=== PATIENT | female | born 1945 | race Caucasian/White ===

== ENCOUNTER → 2016-10-09 | Outpatient (CLI) | payer BC ==
[2016-10-09 09:46] LABS: BASO % 0.2 %; BASO ABS # 0.01 K/uL (0-0.2); COMPLETE YES; EOS % 2.6 %; IG% 0.2 %; LYMPH % 32.3 %; LYMPH ABS # 2.08 K/uL (1.2-3.4); MEAN CORPUSCULAR HEMOGLOBIN 30.3 pg (25-34); MEAN CORPUSCULAR HGB CONC 34.4 g/dl (32-36); MEAN PLATELET VOLUME 10.3 fL (7.4-10.4); MONO % 10.9 %; NEUT % 53.8 %; PLATELET COUNT 332 K/uL (130-400); RED BLOOD COUNT 4.66 M/uL (4.2-5.4); WHITE BLOOD COUNT 6.43 K/uL (4.8-10.8)
[2016-10-09 10:02] LABS: ALT/SGPT 20 U/L (12-78); AST/SGOT 13 U/L (15-37); BLOOD UREA NITROGEN 11 mg/dl (7-18); BUN/CREATININE RATIO 15.5 (10-20); CALCIUM 9.6 mg/dl (8.5-10.1); CARBON DIOXIDE 29 mmol/L (21-32); CHLORIDE 102 mmol/L (98-107); CHOLESTEROL 211 mg/dl (0-200); CREATININE 0.69 mg/dl (0.60-1.20); GLUCOSE 94 mg/dl (70-99); POTASSIUM 3.6 mmol/L (3.5-5.1); SODIUM 138 mmol/L (136-145); TRIGLYCERIDES 92 mg/dl (0-150); VERY LOW DENSITY LIPOPROT CALC 18 mg/dl
[2016-10-09 10:12] LABS: CHOLESTEROL/HDL RATIO 2.4; HDL CHOLESTEROL 88 mg/dl; LDL CHOLESTEROL CALCULATED 105 mg/dl
[2016-10-09 10:13] LABS: ESTIMATED AVERAGE GLUCOSE 120 mg/dl; HA1C FLAG Normal (Normal)
--- NOTE | 2016-10-16 09:52 | CODING QUERY MEDICAL NECESSITY ---
SUPPORTING DIAGNOSIS NEEDED A supporting diagnosis is required for the test/procedure performed on this patient in order for us to be reimbursed by the patient's insurance. Please provide a supporting diagnosis for the following test/procedure listed below next to the test name along with your signature. *If there is no additional diagnosis for this patient that would support the following test/procedure please document that below next to the test/procedure. Test(s)/Procedure(s) that require a supporting diagnosis: * HEMOGLOBIN A1C DIAGNOSIS: Provider Signature: Date: Thank you Meghan [employer] Once completed, please kindly fax back to [phone] For questions please call [phone]
== END | disposition home or self-care (01) ==
LOC: C.LAB1850 07:42
PROVIDERS: ATTEND Internal Medicine
DX: E78.00 Pure hypercholesterolemia, unspecified (principal); R73.9 Hyperglycemia, unspecified

== ENCOUNTER → 2017-06-03 | Outpatient (CLI) | payer BC ==
[2017-06-03 09:33] LABS: BASO % 0.1 %; BASO ABS # 0.01 K/uL (0-0.2); EOS % 2.1 %; EOS ABS # 0.17 K/uL (0-0.5); HEMATOCRIT 38.1 % (37-47); HEMOGLOBIN 13.3 g/dL (12.0-16.0); IG# 0.02 K/uL (0.00-0.02); LYMPH % 25.2 %; LYMPH ABS # 2.01 K/uL (1.2-3.4); MEAN CELL VOLUME 87.2 fL (80-100); MEAN CORPUSCULAR HEMOGLOBIN 30.4 pg (25-34); MEAN CORPUSCULAR HGB CONC 34.9 g/dl (32-36); MEAN PLATELET VOLUME 10.4 fL (7.4-10.4); NEUT % 62.3 %; NEUT ABS # 4.97 K/uL (1.4-6.5); PLATELET COUNT 326 K/uL (130-400); RED CELL DISTRIBUTION WIDTH CV 13.5 % (11.5-14.5); RED CELL DISTRIBUTION WIDTH SD 42.9 fL (36.4-46.3); WHITE BLOOD COUNT 7.98 K/uL (4.8-10.8)
[2017-06-03 09:46] LABS: HEMOGLOBIN A1C 5.9 % (4.5-5.6)
[2017-06-03 09:50] LABS: ALT/SGPT 21 U/L (12-78); AST/SGOT 15 U/L (15-37); BLOOD UREA NITROGEN 10 mg/dl (7-18); CALCIUM 9.2 mg/dl (8.5-10.1); CARBON DIOXIDE 31 mmol/L (21-32); CHOLESTEROL 171 mg/dl (0-200); CREATININE 0.63 mg/dl (0.60-1.20); GLUCOSE 103 mg/dl (70-99); POTASSIUM 3.3 mmol/L (3.5-5.1); SODIUM 131 mmol/L (136-145)
[2017-06-03 09:53] LABS: LDL CHOLESTEROL CALCULATED 75 mg/dl
== END | disposition home or self-care (01) ==
LOC: C.LAB1850 07:00
PROVIDERS: ATTEND Internal Medicine
DX: E78.00 Pure hypercholesterolemia, unspecified (principal)

== ENCOUNTER → 2017-07-19 | Outpatient (CLI) | payer BC ==
--- NOTE | 2017-07-19 10:04 | DIAGNOSTIC IMAGING REPORT ---
DUPLEX RENAL ARTERY CLINICAL HISTORY: 71 years-old Female presenting with E78.00 [id number]. TECHNIQUE: Real-time grayscale and color and spectral Doppler ultrasound imaging of the kidneys was performed. COMPARISON: None. FINDINGS: Right kidney: Normal echogenicity of renal parenchyma. Right kidney measures 11.2 cm. No hydronephrosis. No convincing evidence of calculus or mass. Intrarenal resistive indices range from 0.68 to 0.71. Normal intrarenal arterial waveforms. Renal artery patent with peak systolic velocity 338 cm/s proximally, 147 cm/s in the midportion, and 46 cm/s distally. Renal vein patent. Left kidney: Normal echogenicity of renal parenchyma. Left kidney measures 11.5 cm. No hydronephrosis. No convincing evidence of calculus or mass. Intrarenal resistive indices range from 0.65 to 0.77. Normal to slightly peaked intrarenal arterial waveforms. Renal artery patent with peak systolic velocity 99 cm/s proximally, 65 cm/s in the midportion, and 75 cm/s distally. Renal vein patent. Abdominal aorta: Atherosclerosis. Peak systolic velocity 51 cm/s. Ratio of right renal artery PSV/aortic PSV: 6.63. Ratio of left renal artery PSV/aortic PSV: 1.94. Other: None. Reference ranges: Normal main renal artery peak systolic velocity less than 180 cm/s. Ratio of renal artery PSV to aortic PSV less than 3.5 equates to normal or less than 60% stenosis. Only one of the two criteria listed needs to be met for diagnosis. IMPRESSION: 1. Findings consistent with proximal right renal artery stenosis. Electronically signed by: Ramsey Santos M.D. 07/19/2017 10:03 AM Dictated Date/Time: 07/19/2017 10:00 AM
== END | disposition home or self-care (01) ==
LOC: C.ULTR 08:54
PROVIDERS: ATTEND Internal Medicine
DX: E78.00 Pure hypercholesterolemia, unspecified (principal)

== ENCOUNTER → 2017-07-24 | Outpatient (CLI) | payer BC ==
[~2017-07-24] MED LIST: OPTIRAY 320 IV PRN
--- NOTE | 2017-07-24 07:47 | DIAGNOSTIC IMAGING REPORT ---
ANGIO ABD/PELVIS COMBO CLINICAL HISTORY: Abnormal ultrasound renal artery stenosis TECHNIQUE: Transaxial acquisition with multi axial reformatted images COMPARISON STUDY: Ultrasound 07/19/2017 FINDINGS: Lung bases are clear. Considerable atelectatic change abdominal aorta and abdominal arterial vasculature. Celiac axis is patent. These superior mesenteric artery also shows no significant narrowing. The left renal artery shows mild atherosclerotic change at its origin but no significant stenotic process is present. There are duplex right renal arterial supplies. There is an 80 percent stenosis of the upper right renal arterial artery. A lower pole right renal artery originates from the anterior aspect of the abdominal aorta and shows no significant stenotic process. Abdominal aorta itself shows considerable atherosclerotic change but no major narrowing. There is occlusion origin right iliac artery. This occlusion extends over a length of 5 cm with evidence for distal collateral reconstitution. Kidneys enhance uniformly. There is moderate atherosclerotic change of the remaining arterial vasculature of the pelvis although no additional high-grade stenosis is seen. There is a mild narrowing of the right common femoral artery. This is estimated no more than 30-40%. Bowel pattern is considered nonobstructive. Overall morphology of liver spleen and pancreas are unremarkable. IMPRESSION: 1. Considerable atherosclerotic change abdominal aorta. 2. 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 Right iliac artery is reconstituted via collateral vessels within the mid pelvic region. 4. Left renal artery shows no significant stenosis. 5. Duplex right renal arterial supply with the superior vessel demonstrating an 80% narrowing. 6. The inferior right renal artery shows no significant stenotic process. 7. 30% narrowing origin right common femoral artery The above report was generated using voice recognition software. It may contain grammatical, syntax or spelling errors. Electronically signed by: Keven Marcos M.D. 07/24/2017 7:46 AM Dictated Date/Time: 07/24/2017 7:34 AM
== END | disposition home or self-care (01) ==
LOC: C.CTS 06:53
PROVIDERS: ATTEND Internal Medicine
DX: I10 Essential (primary) hypertension (principal)

== ENCOUNTER 2019-02-14 12:46 | Inpatient (IN) ==
[2019-02-14 13:57] LABS: Basophils # (auto) 0.01 K/uL (0-0.2); Basophils % (auto) 0.1 %; Hematocrit (blood only) 31.4 % (37-47); Hemoglobin 9.1 g/dL (12.0-16.0); Lymphocytes # (auto) 0.68 K/uL (1.2-3.4); Lymphocytes % (auto) 10.1 %; Mean Corpuscular Hemoglobin 20.2 pg (25-34); Mean Corpuscular Volume 69.6 fL (80-100); Monocytes # (auto) 0.35 K/uL (0.11-0.59); Monocytes % (auto) 5.2 %; Neutrophils # (auto) 5.69 K/uL (1.4-6.5); Neutrophils % (auto) 84.6 %; Platelet Count 449 K/uL (130-400); RDW Coefficient of Variation 16.4 % (11.5-14.5); RDW Standard Deviation 41.6 fL (36.4-46.3); Red Blood Count 4.51 M/uL (4.2-5.4); White Blood Count 6.73 K/uL (4.8-10.8)
--- NOTE | 2019-02-14 14:05 | XRay Report ---
XR chest 1V portable HISTORY: weakness COMPARISON: None. FINDINGS: The lungs are clear. Cardiac silhouette is normal in size. No pleural effusions. No pneumot horax. IMPRESSION: No acute process. Electronically signed by: Charles Child M.D. 02/14/2019 2:03 PM
[2019-02-14 14:16] LABS: Alanine Aminotransferase 25 U/L (12-78); Albumin Level 3.7 gm/dl (3.4-5.0); Aspartate Aminotransferase 16 U/L (15-37); BUN Creatinine Ratio 26.1 (10-20); Blood Urea Nitrogen 20 mg/dl (7-18); Calcium 10.1 mg/dl (8.5-10.1); Carbon Dioxide 27 mmol/L (21-32); Chloride 102 mmol/L (98-107); Est GFR (Non-African American) 77.7; Glucose 112 mg/dl (70-99); Potassium 3.2 mmol/L (3.5-5.1); Sodium 139 mmol/L (136-145)
[2019-02-14 14:27] LABS: Hypochromasia Present; Microcytosis Present
[2019-02-14 14:30] LABS: Albumin Globulin Ratio 0.9 (0.9-2); Alkaline Phosphatase 124 U/L (45-117); Bilirubin,Total 0.3 mg/dl (0.2-1); Globulin 4.2 gm/dl (2.5-4.0); Total Protein 7.9 gm/dl (6.4-8.2); Troponin I < 0.015 ng/ml (0-0.045)
[2019-02-14] MEDS ORDERED: OPTIRAY 320 125ml IV PRN (15:20)
[2019-02-14 15:24] LABS: Appearance Urine Cloudy (Clear); Bacteria Urine Automated 1+ (Negative); Bilirubin Urine Negative (Negative); Blood Urine Negative (Negative); Color Urine Dark Yellow; Epithelial Cell Urine Auto >30 /lpf (0-5); Glucose Urine UA Negative (Negative); Ketones Urine 1+ (Negative); Leukocyte Esterase Urine Negative (Negative); Nitrite Urine Negative (Negative); Protein Urine 3+ (Negative); RBC Urine Automated 0-4 /hpf (0-4); Specific Gravity Urine 1.024 (1.000-1.030); Urobilinogen Urine Negative (Negative); pH Urine 6.5 (4.5-7.5)
--- NOTE | 2019-02-14 15:34 | CT Scan Report ---
CT head/brain wo con CLINICAL HISTORY: 73 years-old Female with ams. Acutely altered mental status TECHNIQUE: Multiple axial CT images of the head were obtained without contrast. A dose lowering tech nique was utilized adhering to the principles of ALARA. COMPARISON: CTA head neck of same day. FINDINGS: No acute intracranial hemorrhage, midline shift, intracranial mass, hydrocephalus, territorial ischem ia or abnormal extra-axial collection. Age-related involutional changes with ex vacuo ventriculomegal y. Patchy white matter hypodensities suggest chronic microvascular ischemic disease. Senescent calcif ications of the lentiform nuclei. Hypodensities of the basal ganglia suggest remote lacunar infarctio ns. Cerebral vascular calcifications are also noted. The calvarium is intact. Trace mastoid effusions. Metopic suture. Paranasal sinuses are generally cl ear. Soft tissues and orbits are unremarkable. IMPRESSION: No acute intracranial abnormality. The above report was generated using voice recognition software. It may contain grammatical, syntax o r spelling errors. Electronically signed by: Preston Sams M.D. 02/14/2019 3:32 PM
--- NOTE | 2019-02-14 15:43 | CT Scan Report ---
CT angio neck with con, CT angio head w con CLINICAL HISTORY: 73 years-old Female with ams, memory issues. Acutely altered mental status with memory loss COMPARISON STUDY: Head CT of same day TECHNIQUE: Following the IV administration of 119 mL of Optiray 320, CT angiogram of the head and nec k was performed from the aortic arch to the skull apex. Images are reviewed in the axial, sagittal, a nd coronal planes. 3-D MIPS images are created and assessed. IV contrast was administered without com plication. All measurements were calculated based on NASCET criteria. A dose lowering technique was utilized adhering to the principles of ALARA. CT DOSE: 1011.90 mGy.cm FINDINGS: Opacified pulmonary arterial tree is unremarkable. Moderate atheromatous plaque of the thoracic aorti c arch and proximal great vessels. The imaged proximal subclavian arteries appear patent. Patent bila teral common carotid arteries. Moderate to severe mixed plaque of the bilateral carotid bulbs and pro ximal internal carotid arteries results in less than 50% luminal narrowing bilaterally. Severe calcif ied plaque of the cavernous and supraclinoid segments without high-grade stenosis. Mild multifocal maxine elizabet narrowing is noted throughout the right middle cerebral artery noted within the distal M1 branc h and within the terminal branches. The bilateral anterior cerebral arteries are patent. There is no aneurysm, dissection, high-grade stenosis or proximal branch occlusion. Dominant right vertebral artery. Less than 50% luminal narrowing involves the V2 segment right verteb ral artery at the level of C5-C6 secondary to facet arthrosis and spondylitic spurring. Calcified hardy que involves the proximal V4 segment right vertebral artery without high-grade narrowing. Development ally diminutive left vertebral artery is patent with majority of the vessel terminating in the left P ICA. Patent basilar artery. origin of the left posterior cerebral artery. Bilateral posterior c erebral arteries appear patent. Cerebral venous sinuses appear patent. No abnormal intracranial enhan cement. There is no pneumothorax. Moderate emphysema with bilateral bronchial wall thickening. There are a fe w scattered micronodules measuring 1-2 mm which are nonspecific however favored to reflect infectious or inflammatory process. Mild biapical pleural-parenchymal scarring. There are a few scattered subce ntimeter thyroid nodules noted. Orbits and soft tissues are within normal limits. Degenerative change s of the spine. Bilateral mastoid effusions. IMPRESSION: 1. No aneurysm, dissection, high-grade stenosis or proximal branch occlusion. 2. Moderate to severe mixed plaque of the bilateral carotid bulbs and proximal internal carotid arter ies results in less than 50% luminal narrowing bilaterally. 3. Mild multifocal luminal narrowing throughout the right middle cerebral artery. 4. Moderate emphysema. The above report was generated using voice recognition software. It may contain grammatical, syntax o r spelling errors. Electronically signed by: Preston Sams M.D. 02/14/2019 3:42 PM
--- NOTE | 2019-02-14 17:29 | History & Physical Report ---
Date of Service February 14, 2019 Assessment & Plan (1) Memory loss: Admit patient to PCU on telemetry for observation for acute memory loss. Vital signs every 4 hours. MRI of brain pending. Consult neurology. CBC CMP daily Replenish electrolytes. DVT prophylaxis Lovenox 40 mg subcu daily. Check folate and vitamin B12. Full code Present on Admission?: Yes (2) Hypertension: Continue home medicine: Diltiazem 300 mg extended release every 24, indapamide 1.25 mg tablet p.o. daily. Present on Admission?: Yes (3) Peripheral arterial disease: Continue atorvastatin 20 mg tablet nightly. Continue Clopidogrel 75 mg p.o. daily. Present on Admission?: Yes (4) Dyslipidemia: Lipid panel pending. Continue atorvastatin 20 mg nightly. Present on Admission?: Yes History of Present Illness Chief Complaint: Acute memory loss Primary Care Provider: Favio Valdes MD Patient is a 73 years old female with past medical history of peripheral vascular disease, hypertension, deep venous thrombosis, dyslipidemia, renal artery stenosis he is brought by her family to the emergency room with a complaint that patient is not acting herself, since this morning she is increasingly confused and has acute memory loss as of what happened yesterday and today. Patient is calmly sitting in her bed. She responds to questions. She is only oriented in person and place. Patient is unable to recall names of the medications that she took this morning even though her daughter said that she usually knows the names. Patient remembers that she took 4 pills. She recalls that occasionally she takes Tylenol PM for generalized pain. Patient is otherwise pleasant in person and admits that she is increasingly forgetful. She said that she is not sure why her daughters brought her in. Patient denies any fever, chills, chest pain, shortness of breath, syncope, near syncope, loss of consciousness, melena, hematuria, dysuria. Labs are reviewed and significant for WBCs of 6.73, hemoglobin 9.1, hematocrit 31.4, platelet 499, sodium 139, potassium 3.2, chloride 102, BUN 20, creatinine 0.77 GFR 77.7, troponin 0 0.015, TSH 2.44 .Decision was made to admit patient to PCU on telemetry for observation to rule out possible transient ischemic attack versus stroke versus acute memory loss due to chronic vascular dementia. Allergies Allergy/AdvReac Type Severity Reaction Status Date / Time No Known Allergies Allergy Verified 02/14/19 13:32 Home Medications Home Medications Medication Instructions Recorded Confirmed Type atorvastatin 20 mg tablet 20 mg PO DAILY #90 tab NS 11/07/18 02/14/19 Rx diltiazem HCl 300 mg 300 mg PO DAILY #90 cap 11/07/18 02/14/19 Rx capsule,extended release 24 hr clopidogrel 75 mg tablet 75 mg PO DAILY #90 tab 11/28/18 02/14/19 Rx indapamide 1.25 mg tablet 1.25 mg PO DAILY #90 tab 01/09/19 02/14/19 Rx Past Med/Surg History Medical History DVT (deep venous thrombosis) Dyslipidemia (Chronic) Hypertension (Chronic) Peripheral arterial disease (Chronic) Renal artery stenosis (Chronic) Family History Other Dementia Social History marital status: Current Living Situation: Spouse current occupational status: retired Feels Safe at Home: Yes Smoking Status: Current every day smoker Review of Systems Review of Systems: All systems reviewed & are unremarkable except as noted in HPI & below Physical Exam Constitutional: WD/WN, vitals as above well developed Eyes: PERRL, conjunctivae normal, anicteric sclerae ENMT: external ear and nose normal, oropharynx normal Neck: trachea midline, no thyromegaly Respiratory: normal respiratory effort, lungs clear to auscultation Cardiovascular: Heart Sounds: normal S1, normal S2 and + murmur Gastrointestinal (Abdomen): normal bowel sounds, soft, nontender, no hepatosplenomegaly Musculoskeletal: no cyanosis or clubbing, extremities motor strength 5/5 Skin: no rashes, warm and dry Neurologic: patellar DTR's 2+ bilat, sensation intact Psychiatric: Insight: + limited insight Patient admits she is forgetful. Mini-Mental test score poorly <15. Oriented only in person and place. Lymphatic: no cervical or axillary lymphadenopathy Results & Data Vital Signs (Past 12 Hours) Vital Signs Temp Pulse Resp BP Pulse Ox 02/14/19 15:00 81 17 99 02/14/19 14:30 84 15 98 02/14/19 14:00 88 26 H 100 02/14/19 13:30 87 21 186/71 H 100 02/14/19 13:19 93 H 18 180/85 H 100 02/14/19 12:59 36.6 C 98 H 20 189/80 H 99 Code Status & VTE Plan Code Status Full code VTE Prophylaxis Plan VTE Prophylaxis will be ordered: Yes PG Care Time/CCT Total # of Minutes Spent Total Time Spent with Patient: Total time spent is greater than 50% in coordination of care (as documented) at patient's floor/unit and/or counseling patient:
--- NOTE | 2019-02-14 17:35 | Emergency Department Note ---
Entered by Mary Ellen Baker acting as a scribe for Yury Hutchinson M.D. History of Present Illness General Chief complaint: Altered Mental Status Stated complaint: ALTERED MENTAL STATUS Time Seen by Provider: 02/14/19 13:11 Source: patient History of Present Illness Onset (ago): day(s) 3 Location: head Pain Consistency: + other (worsening) Quality: + other (altered mental status) Associated symptoms: + denies other symptoms (being in any pain, vision troubles, numbness, urinary symptoms, difficulty walking, difficulty moving bowels) and + other (difficulty with memory); no headaches The patient is a 73 year old female who presents to the Emergency Room with complaints of worsening altered mental status starting 3 days ago. The patient states that she is unsure why she is here. She states that she was bought in by her family because they dont think that she is herself. The patients daughter states that her father was complaining of the patient struggling with her short term memory over the last 3 days. She states that she is unable to remember conversations from an hour earlier. She reports that she really noticed that it was much worse this morning and bought her to the ED. She notes that she thinks it is 1998 which is unlike her. The patient notes that her mother did have dementia. The patient denies being in any pain, eating today, a headache, vision troubles, numbness, urinary symptoms, difficulty walking, difficulty moving bowels, use of blood thinners, a history of dementia, and a cardiac history. Home Medications Home Medications Medication Instructions Recorded Confirmed Type atorvastatin 20 mg tablet 20 mg PO DAILY #90 tab NS 11/07/18 02/14/19 Rx diltiazem HCl 300 mg 300 mg PO DAILY #90 cap 11/07/18 02/14/19 Rx capsule,extended release 24 hr clopidogrel 75 mg tablet 75 mg PO DAILY #90 tab 11/28/18 02/14/19 Rx indapamide 1.25 mg tablet 1.25 mg PO DAILY #90 tab 01/09/19 02/14/19 Rx Allergies Allergy/AdvReac Type Severity Reaction Status Date / Time No Known Allergies Allergy Verified 02/14/19 13:32 Past Med/Surg History Medical History DVT (deep venous thrombosis) Dyslipidemia (Chronic) Hypertension (Chronic) Peripheral arterial disease (Chronic) Renal artery stenosis (Chronic) Family History Other Dementia Social History marital status: Current Living Situation: Spouse current occupational status: retired Feels Safe at Home: Yes Smoking Status: Current every day smoker Review of Systems See HPI for pertinent positives & negatives. and A total of 10 systems reviewed and were otherwise negative Physical Exam Vital Signs Vital Signs - 24 hr 02/14/19 12:59 02/14/19 13:10 02/14/19 13:19 Temperature 36.6 C Temperature Source Oral Pulse Rate 98 H 93 H Pulse Rate from SpO2 Sensor 91 H Pulse Rhythm Regular Pulse Strength Normal Respiratory Rate 20 18 Respiratory Effort / Characteristics Non-Labored Spontaneous Respiratory Depth Normal Respiratory Pattern Regular Blood Pressure 189/80 H 180/85 H Blood Pressure Mean 116 125 Blood Pressure Position Sitting Pulse Oximetry 99 100 Oxygen Delivery Method Room Air Nasal Cannula Room Air Room Air Sepsis Recent Fever Within 48 Hours No Sepsis New/Unexplained Change in Mental Status No Sepsis Action Taken by Nursing No Action Required 02/14/19 13:30 02/14/19 14:00 02/14/19 14:30 Temperature Temperature Source Pulse Rate 87 88 84 Pulse Rate from SpO2 Sensor 87 89 84 Pulse Rhythm Pulse Strength Respiratory Rate 21 26 H 15 Respiratory Effort / Characteristics Respiratory Depth Respiratory Pattern Blood Pressure 186/71 H Blood Pressure Mean 112 Blood Pressure Position Pulse Oximetry 100 100 98 Oxygen Delivery Method Sepsis Recent Fever Within 48 Hours Sepsis New/Unexplained Change in Mental Status Sepsis Action Taken by Nursing 02/14/19 15:00 Temperature Temperature Source Pulse Rate 81 Pulse Rate from SpO2 Sensor 81 Pulse Rhythm Pulse Strength Respiratory Rate 17 Respiratory Effort / Characteristics Respiratory Depth Respiratory Pattern Blood Pressure Blood Pressure Mean Blood Pressure Position Pulse Oximetry 99 Oxygen Delivery Method Sepsis Recent Fever Within 48 Hours Sepsis New/Unexplained Change in Mental Status Sepsis Action Taken by Nursing GENERAL: Awake, alert but not oriented to the events of today, well-appearing, in no distress HENT: Normocephalic, atraumatic. EYES: Normal conjunctiva. Sclera non-icteric. NECK: Supple. No nuchal rigidity. RESPIRATORY: Clear to auscultation. No wheezes. Normal respiratory effort. CARDIAC: Normal rate. Normal rhythm. Extremities warm and well perfused. GI: Soft, non-distended. No tenderness to palpation. RECTAL: Deferred. MUSCULOSKELETAL: Atraumatic. Chest examination reveals no tenderness. LOWER EXTREMITIES: Calves are equal size bilaterally and non-tender. No edema NEURO: No slurred speech. Intact mcc memory. No facial droop. Cranial nerves 2-12 are grossly intact. No sensory or motor deficits noted. Limited recollection of recent events. SKIN: Warm and dry. No rash or jaundice noted. Course Course 1312: The patient was evaluated in room A11A. A complete history and physical exam was performed. 1557: I reevaluated the patient and updated her and her family on her test results at this time. I discussed the treatment plan with them. They verbally agree and understand. 1608: I discussed the patient's case with Dr. Bass- [facility] Hospitalist. She will evaluate the patient for further management. Administered Medications Ioversol (Optiray 320 125ml) 119 ml IV ONCE PRN PRN Reason: Interaction Checking Stop: 02/18/19 15: Last Admin: 02/14/19 15:20 Dose: 119 ml Documented by: [id number] Medical Decision Making Differential Diagnosis Differential diagnoses includes but is not limited to toxic, metabolic, infectious, traumatic, cardiac, neurologic, hematologic, psychiatric and inflammatory etiologies. Medical Records Attestation: I reviewed the patient's medical records. Home Medications Current Medication List: was personally reviewed by me Laboratory Data Attestation: I reviewed the patient's lab results. Result diagrams: 02/14/19 13:46 02/14/19 13:46 Lab Results 02/14/19 02/14/19 02/14/19 Range/Units 13:46 13:46 13:50 WBC 6.73 (4.8-10.8) K/uL RBC 4.51 (4.2-5.4) M/uL Hgb 9.1 L (12.0-16.0) g/dL Hct 31.4 L (37-47) % MCV 69.6 L (80-100) fL MCH 20.2 L (25-34) pg MCHC 29.0 L (32-36) g/dL RDW Std Deviation 41.6 (36.4-46.3) fL RDW Coeff of Pedro 16.4 H (11.5-14.5) % Plt Count 449 H (130-400) K/uL MPV 9.0 (7.4-10.4) fL Immature Gran % (Auto) 0.0 % Neut % (Auto) 84.6 % Lymph % (Auto) 10.1 % [place] % (Auto) 5.2 % Eos % (Auto) 0.0 % Baso % (Auto) 0.1 % Immature Gran # (Auto) 0.00 (0.00-0.02) K/uL Neut # (Auto) 5.69 (1.4-6.5) K/uL Lymph # (Auto) 0.68 L (1.2-3.4) K/uL [place] # (Auto) 0.35 (0.11-0.59) K/uL Eos # (Auto) 0.00 (0-0.5) K/uL Baso # (Auto) 0.01 (0-0.2) K/uL Hypochromasia Present Microcytosis Present Sodium 139 (136-145) mmol/L Potassium 3.2 L (3.5-5.1) mmol/L Chloride 102 (98-107) mmol/L Carbon Dioxide 27 (21-32) mmol/L Anion Gap 9.0 (3-11) BUN 20 H (7-18) mg/dl Creatinine 0.77 (0.6-1.2) mg/dl Est Cr Clr Drug Dosing Not Reportable Est GFR ( Amer) 90.0 Est GFR (Non-Af Amer) 77.7 BUN/Creatinine Ratio 26.1 H (10-20) Glucose 112 H (70-99) mg/dl POC Glucose 129 H (70-99) Calcium 10.1 (8.5-10.1) mg/dl Total Bilirubin 0.3 (0.2-1) mg/dl AST 16 (15-37) U/L ALT 25 (12-78) U/L Alkaline Phosphatase 124 H (45-117) U/L Troponin I < 0.015 (0-0.045) ng/ml Total Protein 7.9 (6.4-8.2) gm/dl Albumin 3.7 (3.4-5.0) gm/dl Globulin 4.2 H (2.5-4.0) gm/dl Albumin/Globulin Ratio 0.9 (0.9-2) TSH 2.440 (0.300-4.500) uIu/ml Urine Color Urine Appearance (Clear) Urine pH (4.5-7.5) Ur Specific [place] (1.000-1.030) Urine Protein (Negative) Urine Glucose (UA) (Negative) Urine Ketones (Negative) Urine Blood (Negative) Urine Nitrite (Negative) Urine Bilirubin (Negative) Urine Urobilinogen (Negative) Ur Leukocyte Esterase (Negative) Urine WBC (Auto) (0-5) /hpf Urine RBC (Auto) (0-4) /hpf U Hyaline Cast (Auto) (0-5) /lpf U Epithel Cells (Auto) (0-5) /lpf Urine Bacteria (Auto) (Negative) Ur Renal Epithelial Cell (0-5) /lpf 02/14/19 Range/Units 14:30 WBC (4.8-10.8) K/uL RBC (4.2-5.4) M/uL Hgb (12.0-16.0) g/dL Hct (37-47) % MCV (80-100) fL MCH (25-34) pg MCHC (32-36) g/dL RDW Std Deviation (36.4-46.3) fL RDW Coeff of Pedro (11.5-14.5) % Plt Count (130-400) K/uL MPV (7.4-10.4) fL Immature Gran % (Auto) % Neut % (Auto) % Lymph % (Auto) % [place] % (Auto) % Eos % (Auto) % Baso % (Auto) % Immature Gran # (Auto) (0.00-0.02) K/uL Neut # (Auto) (1.4-6.5) K/uL Lymph # (Auto) (1.2-3.4) K/uL [place] # (Auto) (0.11-0.59) K/uL Eos # (Auto) (0-0.5) K/uL Baso # (Auto) (0-0.2) K/uL Hypochromasia Microcytosis Sodium (136-145) mmol/L Potassium (3.5-5.1) mmol/L Chloride (98-107) mmol/L Carbon Dioxide (21-32) mmol/L Anion Gap (3-11) BUN (7-18) mg/dl Creatinine (0.6-1.2) mg/dl Est Cr Clr Drug Dosing Est GFR ( Amer) Est GFR (Non-Af Amer) BUN/Creatinine Ratio (10-20) Glucose (70-99) mg/dl POC Glucose (70-99) Calcium (8.5-10.1) mg/dl Total Bilirubin (0.2-1) mg/dl AST (15-37) U/L ALT (12-78) U/L Alkaline Phosphatase (45-117) U/L Troponin I (0-0.045) ng/ml Total Protein (6.4-8.2) gm/dl Albumin (3.4-5.0) gm/dl Globulin (2.5-4.0) gm/dl Albumin/Globulin Ratio (0.9-2) TSH (0.300-4.500) uIu/ml Urine Color Dark Yellow Urine Appearance Cloudy A (Clear) Urine pH 6.5 (4.5-7.5) Ur Specific [place] 1.024 (1.000-1.030) Urine Protein 3+ H (Negative) Urine Glucose (UA) Negative (Negative) Urine Ketones 1+ H (Negative) Urine Blood Negative (Negative) Urine Nitrite Negative (Negative) Urine Bilirubin Negative (Negative) Urine Urobilinogen Negative (Negative) Ur Leukocyte Esterase Negative (Negative) Urine WBC (Auto) 1-5 (0-5) /hpf Urine RBC (Auto) 0-4 (0-4) /hpf U Hyaline Cast (Auto) 10-30 H (0-5) /lpf U Epithel Cells (Auto) >30 H (0-5) /lpf Urine Bacteria (Auto) 1+ H (Negative) Ur Renal Epithelial Cell 5-10 H (0-5) /lpf Imaging Data Radiologist's Impression: Radiology results as stated below per my review and the radiologist's interpretation: XR chest 1V portable HISTORY: weakness COMPARISON: None. FINDINGS: The lungs are clear. Cardiac silhouette is normal in size. No pleural effusions. No pneumothorax. IMPRESSION: No acute process. Electronically signed by: Charles Child M.D. 02/14/2019 2:[address] head/brain wo con CLINICAL HISTORY: 73 years-old Female with ams. Acutely altered mental status TECHNIQUE: Multiple axial CT images of the head were obtained without contrast. A dose lowering technique was utilized adhering to the principles of ALARA. COMPARISON: CTA head neck of same day. FINDINGS: No acute intracranial hemorrhage, midline shift, intracranial mass, hydrocephalus, territorial ischemia or abnormal extra-axial collection. Age- related involutional changes with ex vacuo ventriculomegaly. Patchy white matter hypodensities suggest chronic microvascular ischemic disease. Senescent calcifications of the lentiform nuclei. Hypodensities of the basal ganglia suggest remote lacunar infarctions. Cerebral vascular calcifications are also noted. The calvarium is intact. Trace mastoid effusions. Metopic suture. Paranasal sinuses are generally clear. Soft tissues and orbits are unremarkable. IMPRESSION: No acute intracranial abnormality. The above report was generated using voice recognition software. It may contain grammatical, syntax or spelling errors. Electronically signed by: Preston Sams M.D. 02/14/2019 3:[address] angio neck with con, CT angio head w con CLINICAL HISTORY: 73 years-old Female with ams, memory issues. Acutely altered mental status with memory loss COMPARISON STUDY: Head CT of same day TECHNIQUE: Following the IV administration of 119 mL of Optiray 320, CT angiogram of the head and neck was performed from the aortic arch to the skull apex. Images are reviewed in the axial, sagittal, and coronal planes. 3-D MIPS images are created and assessed. IV contrast was administered without complication. All measurements were calculated based on NASCET criteria. A dose lowering technique was utilized adhering to the principles of ALARA. CT DOSE: 1011.90 mGy.cm FINDINGS: Opacified pulmonary arterial tree is unremarkable. Moderate atheromatous plaque of the thoracic aortic arch and proximal great vessels. The imaged proximal subclavian arteries appear patent. Patent bilateral common carotid arteries. Moderate to severe mixed plaque of the bilateral carotid bulbs and proximal internal carotid arteries results in less than 50% luminal narrowing bila terally. Severe calcified plaque of the cavernous and supraclinoid segments without high-grade stenosis. Mild multifocal luminal narrowing is noted throughout the right middle cerebral artery noted within the distal M1 branch and within the terminal branches. The bilateral anterior cerebral arteries are patent. There is no aneurysm, dissection, high-grade stenosis or proximal branch occlusion. Dominant right vertebral artery. Less than 50% luminal narrowing involves the V2 segment right vertebral artery at the level of C5-C6 secondary to facet arthrosis and spondylitic spurring. Calcified plaque involves the proximal V4 segment right vertebral artery without high-grade narrowing. Developmentally diminutive left vertebral artery is patent with majority of the vessel terminating in the left PICA. Patent basilar artery. origin of the left posterior cerebral artery. Bilateral posterior cerebral arteries appear patent. Cerebral venous sinuses appear patent. No abnormal intracranial enhancement. There is no pneumothorax. Moderate emphysema with bilateral bronchial wall thickening. There are a few scattered micronodules measuring 1-2 mm which are nonspecific however favored to reflect infectious or inflammatory process. Mild biapical pleural-parenchymal scarring. There are a few scattered subcentimeter thyroid nodules noted. Orbits and soft tissues are within normal limits. De generative changes of the spine. Bilateral mastoid effusions. IMPRESSION: 1. No aneurysm, dissection, high-grade stenosis or proximal branch occlusion. 2. Moderate to severe mixed plaque of the bilateral carotid bulbs and proximal internal carotid arteries results in less than 50% luminal narrowing bilaterally. 3. Mild multifocal luminal narrowing throughout the right middle cerebral artery. 4. Moderate emphysema. The above report was generated using voice recognition software. It may contain grammatical, syntax or spelling errors. Electronically signed by: Preston Sams M.D. 02/14/2019 3:42 PM ECG Data Attestation: I personally reviewed and interpreted this ECG as follows: Indication: + altered mental status Rate (beats per minute): 88 Rhythm: + normal sinus ECG [place]: + Normal ECG ST segments: no ST depression and no ST elevation ECG Findings: + Other (normal QT-c); no PVCs Blood Pressure Blood Pressure Findings: Elevated blood pressure Blood Pressure Disposition: further management by hospitalist DEB Eastman Patient is a 73-year-old female with past medical history including peripheral artery disease status post iliac repair, renal artery stenosis, dyslipidemia, hypertension presenting today with report of 3 days of worsening significant memory. Patient has issues remembering recent events but not long-term memory. No falls reported. No focal neurological deficits appreciated on exam and no aphasia. Some question is whether she may be suffering from worsening dementia but changed him fairly acute according to family. Laboratory studies here show some worsening anemia and slight hypokalemia but no other significant laboratory abnormality. Does not appear in any discomfort and ambulatory here without gait dysfunction. CT the head as well as CT angiograms of the head were obtained. Urinalysis without significant and evidence of infection. Discussed with patient's and daughter as well as the patient at the room. Again concerning that this could ramp represents a ongoing dementia process but they state pretty clearly things are very different today acutely. Given that they report an acute change discussed with him options of close outpatient follow-up of the next week or 2 versus further observation and consultation here in the hospital. They felt more comfortable with the plan to stay for further evaluation here. Discussed with hospitalist. Impression & Plan Confusion, Memory loss Discharge Plan Visit Data Chief Complaint: Altered Mental Status Stated Complaint: ALTERED MENTAL STATUS ED Provider: Yury Hutchinson Discharge Problem: Confusion, Memory loss Patient Disposition: Being Evaluated by Hospitalist Discharge Instructions Interventions: ED Discharge Assessment Last Done: 02/14/19 17:31 Forms Stand Alone Forms: [facility] Prescriptions Prescriptions: No Action diltiazem HCl 300 mg capsule,extended release 24hr 300 mg PO DAILY Qty: 90 RF: 3 atorvastatin 20 mg tablet 20 mg PO DAILY Qty: 90 RF: 3 indapamide 1.25 mg tablet 1.25 mg PO DAILY Qty: 90 RF: 3 clopidogrel 75 mg tablet 75 mg PO DAILY Qty: 90 RF: 2 Referrals Referrals: Favio Valdes MD [Primary Care Provider] - The scribe's documentation has been prepared under my direction and personally reviewed by me in its entirety. I confirm that the note above accurately reflects all work, treatment, procedures, and medical decision making performed by me.
[2019-02-14] MEDS ORDERED: ALUMINUM/MAGNESIUM SUSP 30 ML UDC PO PRN (17:52)
[2019-02-14] MEDS ORDERED: POLYETHYLENE (MIRALAX) 17 GM PACK PO PRN (17:52)
[2019-02-14] MEDS ORDERED: MAGNESIUM HYDROXIDE SUSP 30 ML UDC PO PRN (17:52)
[2019-02-14] MEDS ORDERED: ACETAMINOPHEN 325 MG TAB PO PRN (17:52)
[2019-02-14] MEDS ORDERED: SODIUM CHLORIDE 0.9% 1000ML 1,000 ML IV SCH (18:00)
[2019-02-14 18:33] LABS: Hematocrit (blood only) 29.4 % (37-47); Hemoglobin 8.5 g/dL (12.0-16.0); Mean Corpuscular Hemoglobin 19.8 pg (25-34); Mean Corpuscular Hgb Conc 28.9 g/dL (32-36); Mean Corpuscular Volume 68.5 fL (80-100); Platelet Count 460 K/uL (130-400); RDW Coefficient of Variation 16.4 % (11.5-14.5); RDW Standard Deviation 40.5 fL (36.4-46.3); Red Blood Count 4.29 M/uL (4.2-5.4); White Blood Count 6.26 K/uL (4.8-10.8)
[2019-02-14 18:53] LABS: Albumin Level 3.4 gm/dl (3.4-5.0); Creatinine Clr Calc Pharmacy 53.7 ml/min; Est GFR (African American) 101.5; Est GFR (Non-African American) 87.6; Potassium 3.2 mmol/L (3.5-5.1)
[2019-02-14 18:55] LABS: Basophils # (auto) 0.01 K/uL (0-0.2); Basophils % (auto) 0.2 %; Eosinophils # (auto) 0.02 K/uL (0-0.5); Eosinophils % (auto) 0.3 %; Hypochromasia Present; Immature Granulocytes # (auto) 0.01 K/uL (0.00-0.02); Immature Granulocytes % (auto) 0.2 %; Lymphocytes # (auto) 1.43 K/uL (1.2-3.4); Lymphocytes % (auto) 22.8 %; Microcytosis Present; Monocytes # (auto) 0.61 K/uL (0.11-0.59); Monocytes % (auto) 9.7 %; Neutrophils # (auto) 4.18 K/uL (1.4-6.5); Neutrophils % (auto) 66.8 %
[2019-02-14 18:56] LABS: Albumin Globulin Ratio 0.9 (0.9-2); Bilirubin,Total 0.4 mg/dl (0.2-1); Globulin 3.8 gm/dl (2.5-4.0); Total Protein 7.2 gm/dl (6.4-8.2)
[2019-02-14 19:12] LABS: Vitamin B12 693 pg/ml (211-911)
[2019-02-14 19:13] LABS: Folate (Folic Acid) > 24.00 ng/ml (>5.38)
--- NOTE | 2019-02-14 19:52 | Magnetic Resonance Report ---
MR brain wo con HISTORY: 73 years-old Female TIA acute strokelike symptoms with reported memory loss COMPARISON: CT head and CTA head neck of same day TECHNIQUE: Multiplanar multisequence MRI of the brain was obtained without the use of IV contrast. FINDINGS: Account Specialist localizer images demonstrate no gross extracranial abnormality. 1.7 x 1.1 cm focus of restricte d diffusion involves the left lentiform nucleus globus pallidus distribution. Moderately increased T2 /FLAIR signal within this distribution with decreased signal on the ADC map. No acute or subacute ter ritorial infarct. No acute intracranial hemorrhage, midline shift, abnormal extra-axial collection, h ydrocephalus or intracranial mass. Mild age-related involutional changes. Extensive patchy white danna er T2/FLAIR hyperintensities suggest chronic microvascular ischemic disease. Suggestion of remote inf arction of the gissell. Major flow voids appear patent. Trace mastoid effusions. Mild mucosal thickening of the ethmoid air c ells. Skull, soft tissues and orbits are unremarkable. Degenerative changes noted about the imaged ce rvical spine. IMPRESSION: 1. Acute infarction of the left lentiform nucleus, 1.7 cm. 2. No acute or subacute territorial infarct, acute intracranial hemorrhage, or midline shift. 3. Age-related involutional changes with advanced chronic microvascular ischemic disease. The above report was generated using voice recognition software. It may contain grammatical, syntax o r spelling errors. Electronically signed by: Preston Sams M.D. 02/14/2019 7:51 PM
[2019-02-14] MEDS ORDERED: ENOXAPARIN INJ 40 MG/0.4 ML SYR SQ SCH (20:00)
[2019-02-14] MEDS ORDERED: PHARMACIST DISCHARGE MED REC CONSULT PRN (21:00)
[2019-02-14] MEDS ORDERED: ATORVASTATIN 20 MG TAB PO ONE (21:31)
[2019-02-15 06:52] LABS: Basophils # (auto) 0.03 K/uL (0-0.2); Basophils % (auto) 0.6 %; Eosinophils # (auto) 0.07 K/uL (0-0.5); Eosinophils % (auto) 1.4 %; Hematocrit (blood only) 26.4 % (37-47); Hemoglobin 7.7 g/dL (12.0-16.0); Lymphocytes # (auto) 1.34 K/uL (1.2-3.4); Lymphocytes % (auto) 27.4 %; Mean Corpuscular Hemoglobin 20.2 pg (25-34); Mean Corpuscular Hgb Conc 29.2 g/dL (32-36); Mean Corpuscular Volume 69.3 fL (80-100); Mean Platelet Volume 8.8 fL (7.4-10.4); Monocytes # (auto) 0.48 K/uL (0.11-0.59); Monocytes % (auto) 9.8 %; Neutrophils # (auto) 2.97 K/uL (1.4-6.5); Neutrophils % (auto) 60.8 %; Platelet Count 369 K/uL (130-400); RDW Coefficient of Variation 16.3 % (11.5-14.5); RDW Standard Deviation 40.7 fL (36.4-46.3); Red Blood Count 3.81 M/uL (4.2-5.4); White Blood Count 4.89 K/uL (4.8-10.8)
[2019-02-15 07:22] LABS: Hypochromasia Present; Microcytosis Present
[2019-02-15 07:32] LABS: Albumin Level 3.1 gm/dl (3.4-5.0); Calcium 9.2 mg/dl (8.5-10.1); Creatinine Clr Calc Pharmacy 52.9 ml/min; Est GFR (Non-African American) 87.2; Potassium 3.1 mmol/L (3.5-5.1)
[2019-02-15 07:35] LABS: Albumin Globulin Ratio 0.9 (0.9-2); Bilirubin,Total 0.3 mg/dl (0.2-1); Globulin 3.3 gm/dl (2.5-4.0); Total Protein 6.4 gm/dl (6.4-8.2)
[2019-02-15] MEDS: INDAPAMIDE 1.25 MG TAB PO SCH (08:16)
[2019-02-15] MEDS: CLOPIDOGREL BISULFATE 75 MG TAB PO SCH (08:17)
[2019-02-15] MEDS: dilTIAZem HCL 300 MG CAPCR PO SCH (08:17)
[2019-02-15] MEDS: ASPIRIN 81 MG ECTAB PO SCH (08:17)
[2019-02-15] MEDS: ATORVASTATIN 40 MG TAB PO SCH (08:19)
[2019-02-15] MEDS ORDERED: ATORVASTATIN 20 MG TAB PO SCH (09:00)
--- NOTE | 2019-02-15 09:31 | Neurology Consultation ---
Date of Consultation February 15, 2019 Assessment & Plan (1) Stroke: Acute ischemic infarct within the left lentiform nucleus presenting with subacute neurocognitive dysfunction characterized by short-term memory loss, slow cognitive processing, emotional blunting, and subtle impairment of facility to the right hand, but without a gross hemiparesis or aphasia. She was significantly hypertensive at the time of presentation and had been noncompliant with her medications for the past few days. She is a longtime smoker as well. I agree with the addition of daily low-dose aspirin to her medication regimen for the time being. She should continue with clopidogrel 75 mg/day as well. In the long run, however, it would be preferable to discontinue her aspirin as dual antiplatelet therapy is not typically recommended for stroke risk modification. I agree with increasing her dosage of atorvastatin. Smoking cessation will need to be stressed. There does not appear to be evidence of a clinically significant or surgically amenable stenotic lesion within her cervical or intracranial circulation. She does have diffuse atherosclerotic disease, however. Treatment for this condition focuses on medical management and risk factor modification. She should have a transthoracic echocardiogram as well. Continue with medical management of patient's hypertension. Her blood pressure does seem to be modestly improved. Systolic blood pressure goal 140 to 160 mmHg at this time. (2) Memory loss: Although this patient does present with subacute decline in short-term memory, in speaking with her , it sounds like she has been having more chronic difficulty with memory and cognitive function that began at least one year ago. In that context, she may have underlying mild cognitive impairment or an element of mild dementia, potentially vascular subtype although Alzheimer's dementia cannot be completely excluded. Further evaluation of this patient's cognitive functioning should be done in the outpatient setting with consideration of neuropsychological evaluation. I would not start treatment for possible mild dementia at this point in time, however. History of Present Illness Reason for Consultation: Stroke Requesting Physician: Eddi Bass MD Attending Physician: Dejon Rangel MD History of Present Illness The patient is a 73-year old female with a chief complaint of memory loss and confusion that began subacutely, about 3 days ago. In speaking with her , however, it sounds like she has been having some difficulty with short- term memory for much longer timeframe, perhaps over the past year. Her difficulty became much more problematic, however, over the past few days. She seems a bit less animated than usual or more "subdued" according to her . She has not been complaining of headache, double vision, vertigo, focal weakness, or difficulty with gait or balance. She has not had any specific difficulty with speech production or language comprehension. Her showed me a pillbox and it appears as if she has not taken any of her medications for the past few days. The patient does not really give an explanation as to why she has not taken her medication although it may relate to her persistent confusion. She does have a past medical history of peripheral arterial disease and is undergone stenting about a year ago, renal artery stenosis, hypertension, and hyperlipidemia. She typically takes clopidogrel and atorvastatin as well as an antihypertensive as an outpatient. Again, she has been noncompliant for the past few days. Her blood pressure was notably elevated at the time of presentation, 189/80. An initial CT of the head was unremarkable, no evidence of hemorrhage or acute process. CT angiography of the head and neck revealed moderate to severe plaque at the bilateral carotid bulbs and proximal internal carotid arteries resulting in less than 50% narrowing bilaterally. There is mild multifocal narrowing throughout the right middle cerebral artery. Otherwise, no aneurysm, dissection, or evidence of high-grade stenosis or proximal branch occlusion. A follow-up brain MRI was completed which did suggest an acute infarct within the left lentiform nucleus measuring 1.7 cm. The study also reveals an old infarct in the gissell as well as extensive patchy chronic microvascular disease and atrophy. I reviewed the images as well as the radiologist interpretation of these tests. This morning, the patient remains mildly confused. She is aware that she has been having some difficulty with short-term memory but is otherwise a somewhat unreliable historian. Additional details as below. Allergies Allergy/AdvReac Type Severity Reaction Status Date / Time No Known Allergies Allergy Verified 02/14/19 13:32 Home Medications Home Medications Medication Instructions Recorded Confirmed Type atorvastatin 20 mg tablet 20 mg PO DAILY #90 tab NS 11/07/18 02/14/19 Rx diltiazem HCl 300 mg 300 mg PO DAILY #90 cap 11/07/18 02/14/19 Rx capsule,extended release 24 hr clopidogrel 75 mg tablet 75 mg PO DAILY #90 tab 11/28/18 02/14/19 Rx indapamide 1.25 mg tablet 1.25 mg PO DAILY #90 tab 01/09/19 02/14/19 Rx Patient History Medical History DVT (deep venous thrombosis) Dyslipidemia (Chronic) Hypertension (Chronic) Peripheral arterial disease (Chronic) Renal artery stenosis (Chronic) Family History Other Dementia Social History Preferred Language: Persian Communication Ability: Effective Visiting Housekeeper Required: No Beliefs That Will Affect Care: None marital status: Current Living Situation: Spouse current occupational status: retired Feels Safe at Home: Yes Safety Concerns: Feels Safe At This Time Smoking Status: Current every day smoker Tobacco Type: cigarettes ; Do You Dip or Chew Tobacco: No ; Second Hand Exposure: Yes ; Tobacco Cessation Education Requested by Patient: Yes Hx Alcohol Use: No Hx Substance Use: No Review of Systems Constitutional: no fever, no chills and no fatigue Eyes: no blind spots and no diplopia Ear, Nose, Mouth, Throat: no tinnitus and no hearing loss Respiratory: no cough and no dyspnea Cardiovascular: no chest pain and no palpitations Gastrointestinal: no nausea and no vomiting Genitourinary: no urinary incontinence Musculoskeletal: no back pain, no neck pain and no myalgia Integumentary: no rash and no lesions Neurologic: as per Subjective / HPI, + confusion and + memory loss; no localized weakness, no loss of sensation, no tremor(s), no seizure-like activity, no syncope, no headache(s) and no abnormal speech Psychiatric: no depression and no anxiety Hematologic / Lymphatic: no easy bleeding and no easy bruising Physical Exam Physical Exam: The patient is a well-developed, well-nourished elderly female. She is alert and fully oriented. Delayed recall impaired, 0 out of 3 objects. Remote memory intact. She is modestly inattentive. Concentration modestly impaired. Unable to spell world backwards, 2 out of 5. Patient is able to name objects and repeat phrases. Otherwise, she does not really speak that much spontaneously. Her affect seems a bit flat. Processing speed slow. Patient exhibits a normal comprehension of vocabulary but otherwise does not exhibit much knowledge of her past medical history. Visual [place] full to confrontation. Visual acuity normal. Pupils equal round reactive to light and accommodation. Eye movements normal. There is no nystagmus, ptosis, or ophthalmoplegia. Facial sensation intact. There is no facial droop or weak ness. Hearing intact. Palate elevates to midline. Shoulder shrug intact. Tongue protrudes to midline. Sensation intact to all modalities in all 4 limbs. Deep tendon reflexes are intact and symmetrical for the arms and legs bilaterally. Plantar responses downgoing bilaterally. There is no dysdiadochokinesia. There is mild dysmetria [id number] on the right. There is slight impairment of facility with fine finger movements for the right hand. There is a subtle effects with arm roll on the right as well. No obvious pronator drift. No difficulty with [id number] on the left. No difficulty with lgyc-rj-rzfe for either the left or right foot. Ophthalmoscopic examination reveals normal-appearing optic nerves and posterior segments. No papilledema or hemorrhages. Carotid pulses normal bilaterally, no bruits to auscultation. Gait and station not tested due to safety concerns. Patient exhibits normal muscle strength and tone for all 4 limbs proximally and distally. There is no atrophy. No abnormal movements observed. Results & Data Vital Signs (Past 12 Hours) Vital Signs Temp Pulse Pulse Resp BP Pulse Ox 02/15/19 07:44 37.2 C 75 18 142/60 H 97 02/15/19 03:20 36.8 C 71 16 147/66 H 98 02/15/19 00:00 69 02/14/19 23:25 36.7 C 67 18 165/67 H 96 Laboratory Results WBC 4.89, hemoglobin 7.7, hematocrit 26.4, platelet count 369, sodium 139, potassium 3.1, BUN 18, creatinine 0.70, glucose 94, calcium 9.2, AST 13, ALT 22, triglycerides 101, cholesterol 157, LDL 65, VLDL 20, HDL 72, vitamin B12 level 693, folate greater than 24.00, TSH 2.[address] of the head negative for hemorrhage or acute process. There is evidence of chronic microvascular ischemic disease as well as chronic basal ganglia lacunar infarcts. I reviewed the images as well as the radiologist rotation of this test. CT angiography of the head and neck negative for aneurysm, dissection, or high- grade stenosis or proximal branch occlusion. There is moderate to severe plaque of the bilateral carotid bulbs and proximal internal carotid arteries resulting in less than 50% luminal narrowing bilaterally. There is mild multifocal luminal narrowing throughout the right middle cerebral artery. MRI of the brain reveals an acute infarct within the left lentiform nucleus measuring 1.7 x 1.1 cm in size. There is mild generalized atrophy as well as fairly extensive chronic small vessel ischemic disease throughout the brain parenchyma. I reviewed the images as well as the radiologist interpretation of this test. Electrocardiogram reveals a normal sinus rhythm, 88 bpm.
--- NOTE | 2019-02-15 14:12 | Hospitalist Progress Note ---
Date of Service February 15, 2019 Assessment & Plan (1) Memory loss: Appears to be due to acute infarction of the left lentiform nucleus seen on MRI brain on 02/14. Echo on 02/15 showed no PFO, EF 65-70%. - Neurology consulted - Agree with DAPT for a limited time. Otherwise risk factor modification. Quit smoking. - PT on 02/15 felt she was at baseline without needs - OT/GROCERY CLERK pending evaluations - Outpatient neuropsychiatric counseling (2) Anemia: Baseline hgb was ~13 in 2018. - Hgb was 9.1 on admission, now down to 7.7. No indications of bleeding. B12/folate normal. - Iron studies tomorrow - Monitor for GI or other acute bleed (3) Hypertension: BP initially elevated. Now 135/60. Per notes, she had not taken her medications for a few days prior to her CVA. - Continue home medicine: Diltiazem 300 mg extended release every 24, indapamide 1.25 mg tablet p.o. daily. (4) Peripheral arterial disease: - Continue atorvastatin (with increased dose) - Continue DAPT (5) DVT prophylaxis: Lovenox 40mg Subjective Has very little insight into her stroke. Reports she feel fine. Reports no fevers/chills, chest pain, shortness of breath, abdominal pain, nausea, or vomiting. Physical Exam Constitutional: WD/WN, vitals as above Eyes: EOM intact bilaterally; no conjunctival abnormality ENMT: external ear and nose normal, oropharynx normal Neck: trachea midline, no thyromegaly normal visual inspection Respiratory: normal respiratory effort, lungs clear to auscultation no respiratory distress Cardiovascular: RRR, no murmur, no edema Gastrointestinal (Abdomen): Inspection/Auscultation: abdomen normal to inspection; abdomen not distended Musculoskeletal: no cyanosis or clubbing, extremities motor strength 5/5 Skin: no rashes, warm and dry Neurologic: moves all extremities and awake Psychiatric: Orientation: alert, oriented to person and cooperative Cognition: attention grossly intact and language grossly intact; + recent memory not intact and + remote memory not intact Results & Data Vital Signs (Past 12 Hours) Vital Signs Temp Pulse Resp BP Pulse Ox 02/15/19 11:54 98 02/15/19 11:48 84 134/62 02/15/19 11:03 37.1 C 67 20 163/72 H 98 02/15/19 07:44 37.2 C 75 18 142/60 H 97 02/15/19 03:20 36.8 C 71 16 147/66 H 98 PG Care Time/CCT Total # of Minutes Spent Total Time Spent with Patient: Total time spent is greater than 50% in coordination of care (as documented) at patient's floor/unit and/or counseling patient:
[2019-02-15] MEDS: POTASSIUM CHLORIDE PWD 20 MEQ PACK PO SCH (20:22)
[2019-02-16 05:46] LABS: Basophils # (auto) 0.01 K/uL (0-0.2); Basophils % (auto) 0.2 %; Eosinophils # (auto) 0.09 K/uL (0-0.5); Eosinophils % (auto) 1.6 %; Hematocrit (blood only) 26.5 % (37-47); Hemoglobin 7.8 g/dL (12.0-16.0); Immature Granulocytes # (auto) 0.01 K/uL (0.00-0.02); Immature Granulocytes % (auto) 0.2 %; Lymphocytes # (auto) 1.31 K/uL (1.2-3.4); Lymphocytes % (auto) 22.7 %; Mean Corpuscular Hemoglobin 20.3 pg (25-34); Mean Corpuscular Hgb Conc 29.4 g/dL (32-36); Mean Platelet Volume 9.3 fL (7.4-10.4); Monocytes # (auto) 0.85 K/uL (0.11-0.59); Monocytes % (auto) 14.7 %; Neutrophils # (auto) 3.51 K/uL (1.4-6.5); Neutrophils % (auto) 60.6 %; Platelet Count 375 K/uL (130-400); RDW Coefficient of Variation 16.3 % (11.5-14.5); RDW Standard Deviation 40.7 fL (36.4-46.3); Red Blood Count 3.84 M/uL (4.2-5.4); White Blood Count 5.78 K/uL (4.8-10.8)
[2019-02-16 05:53] LABS: Estimated Average Glucose 120 mg/dl; Hemoglobin A1C 5.8 % (4.5-5.6)
[2019-02-16 06:19] LABS: Hypochromasia Present; Microcytosis Present; Polychromasia 1+
[2019-02-16 06:35] LABS: Albumin Globulin Ratio 0.9 (0.9-2); Albumin Level 3.1 gm/dl (3.4-5.0); BUN Creatinine Ratio 18.7 (10-20); Calcium 9.4 mg/dl (8.5-10.1); Creatinine Clr Calc Pharmacy 48.1 ml/min; Est GFR (Non-African American) 77.7; Globulin 3.4 gm/dl (2.5-4.0); Potassium 3.5 mmol/L (3.5-5.1); Total Protein 6.5 gm/dl (6.4-8.2)
[2019-02-16 06:38] LABS: Bilirubin,Total 0.2 mg/dl (0.2-1); Ferritin 3.4 ng/ml (8-388)
[2019-02-16] MEDS: CLOPIDOGREL BISULFATE 75 MG TAB PO SCH (08:03)
[2019-02-16] MEDS: ATORVASTATIN 40 MG TAB PO SCH (08:03)
[2019-02-16] MEDS: INDAPAMIDE 1.25 MG TAB PO SCH (08:03)
[2019-02-16] MEDS: POTASSIUM CHLORIDE PWD 20 MEQ PACK PO SCH (08:03)
[2019-02-16] MEDS: ASPIRIN 81 MG ECTAB PO SCH (08:04)
[2019-02-16] MEDS: dilTIAZem HCL 300 MG CAPCR PO SCH (08:04)
[2019-02-16] MEDS ORDERED: HEPARIN SOD 5,000 UNIT/0.5 ML VIAL SC SCH (09:00)
[2019-02-16] MEDS ORDERED: ENOXAPARIN INJ 40 MG/0.4 ML SYR SQ SCH (09:00)
[2019-02-16] MEDS ORDERED: SODIUM CHLORIDE 0.9% 250 ML IV PRN (13:39)
--- NOTE | 2019-02-16 16:43 | Gastrointestinal Consultation ---
Date of Consultation February 16, 2019 Assessment & Plan (1) Anemia: Fe def anemia--no gross bleeding noted on rectal exam. Not a good idea to perform elective procedures such as EGD or colonoscopy in setting of acute stroke. Recommend PPI to cover for PUD. Transfuse and give IV and/or oral Fe and recommend she be sent for outpt EGD and colonoscopy. Will sign off. History of Present Illness Reason for Consultation: Fe def anemia Requesting Physician: Ney Garza Attending Physician: Ney Garza History of Present Illness HPI Pt without GI complaint. Denies abd pain. She is unaware of any black or bloodys stools. She is not sure when last bm. Per chart no colonscopy done in the past. Pt admitted with mental status changesa secondary to acute stroke. Hgb 13.3 on 05/2017, 8.5 on admit and 7.8 today. Fe sat and ferritin low. B12, folate normal. No GI xrays this admit. Allergies Allergy/AdvReac Type Severity Reaction Status Date / Time No Known Allergies Allergy Verified 02/14/19 13:32 Home Medications Home Medications Medication Instructions Recorded Confirmed Type atorvastatin 20 mg tablet 20 mg PO DAILY #90 tab NS 11/07/18 02/14/19 Rx diltiazem HCl 300 mg 300 mg PO DAILY #90 cap 11/07/18 02/14/19 Rx capsule,extended release 24 hr clopidogrel 75 mg tablet 75 mg PO DAILY #90 tab 11/28/18 02/14/19 Rx indapamide 1.25 mg tablet 1.25 mg PO DAILY #90 tab 01/09/19 02/14/19 Rx Patient History Medical History DVT (deep venous thrombosis) Dyslipidemia (Chronic) Hypertension (Chronic) Peripheral arterial disease (Chronic) Renal artery stenosis (Chronic) Family History Other Dementia Social History Preferred Language: Setswana Communication Ability: Effective Diesel Locomotive Firer/Fireman Required: No Beliefs That Will Affect Care: None marital status: Current Living Situation: Spouse current occupational status: retired Feels Safe at Home: Yes Safety Concerns: Feels Safe At This Time Smoking Status: Current every day smoker Tobacco Type: cigarettes ; Do You Dip or Chew Tobacco: No ; Second Hand Exposure: Yes ; Tobacco Cessation Education Requested by Patient: Yes Hx Alcohol Use: No Hx Substance Use: No Review of Systems Review of Systems: All systems reviewed & are unremarkable except as noted in HPI & below Physical Exam Constitutional: WD/WN, vitals as above Eyes: PERRL, conjunctivae normal, anicteric sclerae ENMT: external ear and nose normal, oropharynx normal Neck: normal visual inspection Respiratory: normal respiratory effort, lungs clear to auscultation Cardiovascular: RRR, no murmur, no edema Gastrointestinal (Abdomen): normal bowel sounds, soft, nontender, no hepatosplenomegaly exam with nurse present rectal no mass, stool light brown Skin: normal turgor Neurologic: PERRL, EOMI, accommodation nl, no face palsy, no dysarthria Psychiatric: Insight: + limited insight Judgement: + limited judgement Results & Data Vital Signs (Past 12 Hours) Vital Signs Temp Pulse Pulse Resp BP BP BP 02/16/19 16:10 36.8 C 62 16 171/71 H 02/16/19 15:49 36.8 C 60 16 162/64 H 02/16/19 15:17 61 02/16/19 11:00 36.7 C 67 18 151/64 H 02/16/19 08:06 37.2 C 68 16 156/76 H 02/16/19 07:32 61 Pulse Ox 02/16/19 16:10 96 02/16/19 15:49 96 02/16/19 15:17 02/16/19 11:00 99 02/16/19 08:06 98 02/16/19 07:32
--- NOTE | 2019-02-16 18:24 | Hospitalist Progress Note ---
Date of Service February 16, 2019 Assessment & Plan (1) Memory loss: Appears to be due to acute infarction of the left lentiform nucleus seen on MRI brain on 02/14. Echo on 02/15 showed no PFO, EF 65-70%. - Neurology consulted - Agree with DAPT for a limited time. Otherwise risk factor modification. Quit smoking. - PT on 02/16 felt she was at baseline without needs - OT/FOREST ECOLOGY PROFESSOR completed -Patient will not be discharged due to her anemia - Outpatient neuropsychiatric counseling (2) Anemia: Iron deficiency anemia. Baseline hgb was ~13 in 2018. - Hgb was 9.1 on admission, now down to 7.8. No indications of bleeding. B12/folate normal. - Iron studies: low iron, low ferritin, upper normal TIBC. Will hold discharge, will consult GI. Obtained consent to transfuse 2 units of PRBC. Patient will ultimately need upper and lower scope. Patient has never had a colonoscopy. Will likely require either a colonscopy as an inpatient or outpatient. will leave this up to cloth coverer. Monitor for GI or other acute bleed. (3) Hypertension: BP initially elevated. Now 135/60. Per notes, she had not taken her medications for a few days prior to her CVA. - Continue home medicine: Diltiazem 300 mg extended release every 24, indapamide 1.25 mg tablet p.o. daily. (4) Peripheral arterial disease: - Continue atorvastatin (with increased dose) - Continue DAPT (5) DVT prophylaxis: will stop dvt prophylaxis due to possible GI bleeding. Subjective This is a pleasant 73-year-old female who is in the room with her . Patient was inquiring if she could be discharged today. Patient denies any fever, chills, nausea, vomiting, abdominal pain, dark stools, blood in her stools. Review of Systems Review of Systems: All systems reviewed & are unremarkable except as noted in HPI & below Physical Exam Physical Exam: Constitutional: WD/WN, vitals as above Eyes: EOM intact bilaterally; no conjunctival abnormality ENMT: external ear and nose normal, oropharynx normal Neck: trachea midline, no thyromegaly normal visual inspection Respiratory: normal respiratory effort, lungs clear to auscultation no respiratory distress Cardiovascular: RRR, no murmur, no edema Gastrointestinal (Abdomen): Inspection/Auscultation: abdomen normal to inspection; abdomen not distended Musculoskeletal: no cyanosis or clubbing, extremities motor strength 5/5 Skin: no rashes, warm and dry Neurologic: moves all extremities and awake Psychiatric: Orientation: alert, oriented to person and cooperative Results & Data Vital Signs (Past 12 Hours) Vital Signs Temp Pulse Pulse Resp BP BP BP 02/16/19 17:55 36.7 C 76 20 184/64 H 02/16/19 16:55 36.7 C 61 16 162/69 H 02/16/19 16:25 36.8 C 64 18 161/54 H 02/16/19 16:10 36.8 C 62 16 171/71 H 02/16/19 15:49 36.8 C 60 16 162/64 H 02/16/19 15:17 61 02/16/19 11:00 36.7 C 67 18 151/64 H 02/16/19 08:06 37.2 C 68 16 156/76 H 02/16/19 07:32 61 Pulse Ox 02/16/19 17:55 94 02/16/19 16:55 96 02/16/19 16:25 97 02/16/19 16:10 96 02/16/19 15:49 96 02/16/19 15:17 02/16/19 11:00 99 02/16/19 08:06 98 02/16/19 07:32 PG Care Time/CCT Total # of Minutes Spent Total Time Spent with Patient: Total time spent is greater than 50% in coordination of care (as documented) at patient's floor/unit and/or counseling patient:
[2019-02-16] MEDS: PANTOprazole 40 MG TAB PO SCH (18:34)
[2019-02-17 06:52] LABS: Basophils # (auto) 0.02 K/uL (0-0.2); Basophils % (auto) 0.3 %; Eosinophils % (auto) 1.5 %; Hematocrit (blood only) 38.3 % (37-47); Hemoglobin 12.1 g/dL (12.0-16.0); Immature Granulocytes # (auto) 0.01 K/uL (0.00-0.02); Immature Granulocytes % (auto) 0.2 %; Lymphocytes # (auto) 1.73 K/uL (1.2-3.4); Lymphocytes % (auto) 26.2 %; Mean Corpuscular Hemoglobin 23.1 pg (25-34); Mean Corpuscular Hgb Conc 31.6 g/dL (32-36); Mean Corpuscular Volume 73.1 fL (80-100); Mean Platelet Volume 9.9 fL (7.4-10.4); Monocytes # (auto) 0.61 K/uL (0.11-0.59); Monocytes % (auto) 9.2 %; Neutrophils # (auto) 4.14 K/uL (1.4-6.5); Neutrophils % (auto) 62.6 %; Platelet Count 373 K/uL (130-400); RDW Coefficient of Variation 17.8 % (11.5-14.5); RDW Standard Deviation 47.8 fL (36.4-46.3); Red Blood Count 5.24 M/uL (4.2-5.4); White Blood Count 6.61 K/uL (4.8-10.8)
[2019-02-17 07:19] LABS: Albumin Level 3.5 gm/dl (3.4-5.0); BUN Creatinine Ratio 12.9 (10-20); Calcium 9.9 mg/dl (8.5-10.1); Creatinine Clr Calc Pharmacy 50.1 ml/min; Est GFR (African American) 94.5; Est GFR (Non-African American) 81.5; Potassium 3.7 mmol/L (3.5-5.1)
[2019-02-17 07:22] LABS: Bilirubin,Total 0.6 mg/dl (0.2-1); Globulin 3.6 gm/dl (2.5-4.0); Total Protein 7.1 gm/dl (6.4-8.2)
[2019-02-17] MEDS: FERROUS SULFATE 325 MG TAB PO SCH ×2 (08:18→10:54)
[2019-02-17] MEDS: ATORVASTATIN 40 MG TAB PO SCH (08:19)
[2019-02-17] MEDS: INDAPAMIDE 1.25 MG TAB PO SCH (08:19)
[2019-02-17] MEDS: dilTIAZem HCL 300 MG CAPCR PO SCH (08:19)
[2019-02-17] MEDS: PANTOprazole 40 MG TAB PO SCH (08:19)
[2019-02-17] MEDS: ASPIRIN 81 MG ECTAB PO SCH (08:19)
[2019-02-17] MEDS: CLOPIDOGREL BISULFATE 75 MG TAB PO SCH (08:19)
[2019-02-17] MEDS ORDERED: STROKE PATIENT DISCHARGE PRN (10:00)
[2019-02-17] MEDS ORDERED: STROKE PATIENT DISCHARGE STA (10:04)
--- NOTE | 2019-02-17 10:44 | Pharmacy Report ---
Pharmacist Stroke Counseling - Date of Service February 17, 2019 - Scope: Pharmacy has been consulted to provide medication discharge counseling for this patient admitted with ischemic stroke as per the Pharmacist Discharge Counseling for Stroke Patients Protocol. - Medications on Discharge: New Rx's Medication Instructions Recorded diltiazem HCl 300 mg 300 mg PO DAILY #90 cap 11/07/18 capsule,extended release 24 hr clopidogrel 75 mg tablet 75 mg PO DAILY #90 tab 11/28/18 indapamide 1.25 mg tablet 1.25 mg PO DAILY #90 tab 01/09/19 atorvastatin 40 mg PO DAILY #30 tab 02/17/19 ferrous sulfate 325 mg PO TIDM #90 tab 02/17/19 lisinopril 2.5 mg PO HS #30 tab 02/17/19 pantoprazole 40 mg PO QAM #30 tab 02/17/19 - Action: The above medications, specifically ones for stroke treatment/prophylaxis, have been reviewed in detail with the patient and/or patient field marketing representative(s) prior to discharge. This includes indication, common adverse reactions, drug interactions, and medication administration. Medication counseling has been employed using the teach-back method to ensure understanding. * Medications reviewed include: * Pantoprazole 40 mg PO daily * Lisinopril 2.5 mg PO HS * Ferrous sulfate 325 mg PO TID * Atorvastatin dose increase from 20 to 40 mg PO daily - Outcome: The patient and/or patient field marketing representative(s) have demonstrated understanding of the medications. Please note, they are aware that the pharmacist will call them within 72 hours post-discharge to confirm that the appropriate medications are being taken and answer any further medication related questions the patient might have at that time. Contact information Individual to be contacted: patient or (Calvin) Phone number: (patient), (Calvin) Best time to call: Anytime Additional comments: - Patient typically independent with medication managements and ADLs - stated that he will be helping her in this post-stroke period - Patient and patient's demonstrated good understanding of medication changes/additions. - Home medications reviewed as well for completion. - [facility] pill box provided to patient. Thank you for allowing pharmacy to be involved in the care of this patient. Please call [phone] or [phone] with any additional questions
--- NOTE | 2019-02-17 10:52 | Neurology Progress Note ---
Date of Service February 17, 2019 Assessment & Plan (1) Stroke: (2) Memory loss: (3) Chronic cerebral ischemia: This patient had an acute ischemic infarct within the left basal ganglia (lentiform nucleus) manifested clinically by some short-term memory and other cognitive problems, slowed processing, and a subtle impairment of facility in the right hand. The etiology of the stroke is likely ischemic in nature from hypertensive small vessel ischemic disease. She is also a cigarette smoker and has dyslipidemia as other risk factors. Initially, she was put on aspirin plus Plavix the (was on Plavix before admission) both because of her severe anemia aspirin was discontinued. She has had transfusion and her hemoglobin and hematocrit are in the normal range now. Her significant anemia may have made her mental status worse as well. It could also put her at risk for stroke. Patient has a history of memory and cognitive problems. I believe she has a vascular dementia. The seemingly progressive nature to this in the last 2 months may be due to anemia and other medical issues. I certainly cannot entirely exclude a senile dementia of the Alzheimer's type. Recommendations: 1. Continue 75 mg clopidogrel daily. Keep off aspirin for now. 2. There is consideration fo upper and lower GI endoscopic procedures, but I would wait at least 4 weeks after the acute stroke before doing these procedures. 3. Discontinue all cigarette smoking. She and her agree. 4. Control blood pressure as you are doing, aiming for a mean arterial pressure of approximately 100 5. Continue with atorvastatin. Technically she would be a high dose statin candidate. 6. Consider neuropsychological testing as an outpatient. Hold on initiating any medication for dementia at this time. 7. Follow up with Dr. Harris as an outpatient in 3-4 weeks. Overall, I spent a total of 60 min with this patient including review of records, review of MRI films, direct evaluation the patient at bedside, and discussion of the case with the patient and her at bedside, Dr. Valdes and Dr. Garza at bedside, including differential diagnosis and treatment options. Subjective Patient feels improved. She denies headaches or pain and has no issues with weakness or numbness of the limbs. She has no dizziness or vision problems (other than needing corrective lenses). Patient knows that she has memory problems but does not think it is that bad. She has had no new problems Her CBC is markedly improved today compared to earlier in their hospitalization. Hemoglobin hematocrit are in the normal range now MRI of the brain shows moderate diffuse old white matter ischemic changes with a medium-sized left basal ganglia area acute stroke. I reviewed these films. Blood pressure is 187/75 Physical Exam Physical Exam: The patient is awake, alert, and attentive, with normal speech and communication. The patient is oriented to person and place, month and season, but not year or date. She is pleasant and cooperative and has a normal mood and affect. She scored 14 in 0.5/30 on the mini-mental status examination. Extraocular eye muscles are intact without nystagmus. Facial strength and symmetry is normal bilaterally. Facial sensation is normal bilaterally in all 3 divisions of the fifth cranial nerve. Tongue is midline with normal strength bilaterally. Gait is narrow based with reasonable stance and turns. Coordination of the arms is normal, without tremor or ataxia bilaterally. Motor strength is 5/5 in all major muscle groups of the arms and legs bilaterally, both proximally and distally. Muscle tone is normal in the limbs, without rigidity or spasticity. Reflexes are 2/4 in all 4 limbs both proximally and distally. Sensation seems intact in all 4 limbs. Results & Data Vital Signs (Past 12 Hours) Vital Signs Temp Pulse Pulse Resp BP BP BP 02/17/19 10:27 36.6 C 61 16 174/70 H 187/75 H 02/17/19 08:00 66 02/17/19 07:52 36.6 C 61 16 187/75 H 02/17/19 03:43 36.6 C 62 19 174/70 H 02/17/19 02:11 59 L 02/16/19 23:42 36.9 C 55 L 16 178/63 H 02/16/19 23:40 36.9 C 55 L 16 178/63 H Pulse Ox 02/17/19 10:27 97 02/17/19 08:00 02/17/19 07:52 97 02/17/19 03:43 97 02/17/19 02:11 02/16/19 23:42 94 02/16/19 23:40 94 PG Care Time/CCT Total # of Minutes Spent Total Time Spent with Patient: Total time spent is greater than 50% in coordination of care (as documented) at patient's floor/unit and/or counseling patient:
--- NOTE | 2019-02-18 08:45 | Discharge Summary ---
Date of Service February 17, 2019 Admission HPI Per Admitting Provider Patient is a 73 years old female with past medical history of peripheral vascular disease, hypertension, deep venous thrombosis, dyslipidemia, renal artery stenosis he is brought by her family to the emergency room with a complaint that patient is not acting herself, since this morning she is increasingly confused and has acute memory loss as of what happened yesterday and today. Patient is calmly sitting in her bed. She responds to questions. She is only oriented in person and place. Patient is unable to recall names of the medications that she took this morning even though her daughter said that she usually knows the names. Patient remembers that she took 4 pills. She recalls that occasionally she takes Tylenol PM for generalized pain. Patient is otherwise pleasant in person and admits that she is increasingly forgetful. She said that she is not sure why her daughters brought her in. Patient denies any fever, chills, chest pain, shortness of breath, syncope, near syncope, loss of consciousness, melena, hematuria, dysuria. Labs are reviewed and significant for WBCs of 6.73, hemoglobin 9.1, hematocrit 31.4, platelet 499, sodium 139, potassium 3.2, chloride 102, BUN 20, creatinine 0.77 GFR 77.7, troponin 0 0.015, TSH 2.44 .Decision was made to admit patient to PCU on telemetry for observation to rule out possible transient ischemic attack versus stroke versus acute memory loss due to chronic vascular dementia. Principal Diagnosis Acute ischemic stroke Discharge Exam Constitutional: WD/WN, vitals as above Eyes: EOM intact bilaterally; no conjunctival abnormality ENMT: external ear and nose normal, oropharynx normal Neck: trachea midline, no thyromegaly normal visual inspection Respiratory: normal respiratory effort, lungs clear to auscultation no respiratory distress Cardiovascular: RRR, no murmur, no edema Gastrointestinal (Abdomen): Inspection/Auscultation: abdomen normal to inspection; abdomen not distended Musculoskeletal: no cyanosis or clubbing, extremities motor strength 5/5 Skin: no rashes, warm and dry Neurologic: moves all extremities and awake Psychiatric: Orientation: alert, oriented to person and cooperative Discharge Data Allergies Allergy/AdvReac Type Severity Reaction Status Date / Time No Known Allergies Allergy Verified 02/14/19 13:32 Consultations 02/14/19 15:58 ED Decision to Admit Stat 02/14/19 17:52 Consult Neurology Routine 02/14/19 21:00 Consult Case Management - Discharge Planning Routine 02/16/19 13:37 Consult Gastroenterology Routine Ordered Studies 02/14/19 13:19 CT angio head w con Stat CT angio neck with con Stat CT head/brain wo con Stat 02/14/19 17:52 MR brain wo con Stat Hospital Course (1) Memory loss: Appears to be due to acute infarction of the left lentiform nucleus seen on MRI brain on 02/14. Echo on 02/15 showed no PFO, EF 65-70%. - Neurology consulted - Agree with DAPT for a limited time. Otherwise risk factor modification. Quit smoking. - PT on 02/16 and on 02/17 felt she was at baseline without needs - OT/EXEC[employer]IVE TE[employer] LEADER completed -Patient will be discharged after 2 PRBCs were given. -Patient will followup with pcp in 2 weeks. - Outpatient neuropsychiatric counseling (2) Anemia: Iron deficiency anemia. Baseline hgb was ~13 in 2018. - Hgb was 9.1 on admission, now down to 7.8. After 2 PRBC, hemoglobin improved appropriately. No indications of bleeding. B12/folate normal. - Iron studies: low iron, low ferritin, upper normal TIBC. Plan is to do outpatient scopes, but will have to be about 4 weeks after her stroke Patient has never had a colonoscopy. (3) Hypertension: BP initially elevated. Now 135/60. Per notes, she had not taken her medications for a few days prior to her CVA. - Continue home medicine: Diltiazem 300 mg extended release every 24, indapamide 1.25 mg tablet p.o. daily. will add lisinopril 2.5 mg PO PM as BP was above goal at discharge. (4) Peripheral arterial disease: - Continue atorvastatin (with increased dose) - will hold aspirin and place on plavix. Recommended patient to quit smoking. (5) DVT prophylaxis: will stop dvt prophylaxis due to possible GI bleeding. Total Time Total Time Spent Total Time Spent (In Minutes): 35 Total Time Includes: Examination of the Patient, Discharge Planning and Medication Reconciliation Discharge Plan Discharge Items Patient Disposition: Home - Self-Care Reason For Visit: ACUTE MEMORY LOSS Discharge Diagnosis: Anemia Stroke Activity: Resume your previous activity Non-emergency contact: Primary Care Provider Call non-emergency contact if: you have any medication questions Follow-up/Referrals: Favio Valdes MD [Primary Care Provider] - Diet: Low Fat and Low Sodium (2gm) Addtl Attending Provider Instructions: Due to recent stroke, will need to hold off doing upper and lower Endoscopy for 4 weeks. Will have you followup with PCP the week after thanksgiving. Risk Factors for Stroke: You can reduce your chances of stroke by working with your medical provider to adopt a healthy lifestyle. Some specific ways to lower your chance of stroke are: * If you are a smoker, now is the time to stop smoking cigarettes * If you are diabetic, improve the control of your blood sugars * Avoid excessive amounts of alcohol * Control high blood pressure * Lose weight if you are overweight * Be sure to lead an active lifestyle * Eat a healthy diet low in salt, cholesterol and fat You should know about other risk factors for stroke that you are unable to control. These include: * Age 55 years or older * Male gender * Certain racial groups: , or / * Family History of Stroke, Mini stroke or Heart Attack * Sickle Cell Disease Follow Up: It is important for you to keep your follow up appointments with your medical provider. Who to Call and When: Medical Emergencies: Call 911 immediately if you experience any of the following warning signs and symptoms of Stroke: * Sudden numbness or weakness of the face, arm or leg, especially on one side of the body * Sudden confusion, trouble speaking or understanding * Sudden trouble seeing in one or both eyes * Sudden trouble walking, dizziness, loss of balance or coordination * Sudden severe headache with no cause Do not delay calling 911 if you experience any warning signs or symptoms of a stroke. Delay in seeking medical attention may affect what treatments can be given to you. . Pending Studies at Discharge: No Stand-Alone Forms: Medications to Prevent Stroke, [facility], Smoking Cessation Medications and DC Order Prescriptions: New atorvastatin 40 mg Tablet 40 mg PO DAILY Qty: 30 RF: 0 pantoprazole 40 mg Tablet,Delayed Release (Dr/Ec) 40 mg PO QAM Qty: 30 RF: 0 ferrous sulfate 325 mg (65 mg iron) Tablet,Delayed Release (Dr/Ec) 325 mg PO TIDM Qty: 90 RF: 0 lisinopril 2.5 mg tablet 2.5 mg PO HS Qty: 30 RF: 0 Continued indapamide 1.25 mg tablet 1.25 mg PO DAILY Qty: 90 RF: 3 clopidogrel 75 mg tablet 75 mg PO DAILY Qty: 90 RF: 2 Discontinued atorvastatin 20 mg tablet 20 mg PO DAILY Qty: 90 RF: 3 No Action diltiazem HCl 300 mg capsule,extended release 24hr 300 mg PO DAILY Qty: 30 RF: 5 Discharge Orders: Discharge Order (Routine); Ordered 02/17/19 Ordered By: Ney Garza Admission Data Admit Date/Time: 02/14/19 21:05 Attending Provider: Ney Garza Admit Provider: Eddi Bass Primary Care Provider: Favio Valdes Other Providers: Loi Harris ; Dejon Rangel ; Loi Smith Other Interventions: Discharge Summary Assessment (RN) Last Done: 02/17/19 10:27 DC Date/Time DO NOT enter until pt leaves facility: 02/17/19 11:11
--- NOTE | 2019-02-19 15:58 | Pharmacy Report ---
Pharmacist Post D/C Phone Note - Phone Note: Date of phone call: February 19, 2019. Individual with whom pharmacist spoke to: Patient's , Calvin. The following questions were reviewed during the phone call with responses listed below each: Can you tell me the medications that you are currently taking as well as when and how you take each medication? -See Table Below When have you missed any doses of your medications? - none What side effects are you having from your medications, specifically, the new medications you were started on? - none What questions do you have about your medications? - none What problems are you having obtaining your medications? - none When is your next appointment with your primary care doctor? - Next week Additional comments: - Patient to see PCP next week, OT coming to see patient Saturday, and to see neurologist in a few weeks. - has all of her medications set up in pill boxes, and was able to discuss medications with [facility] pharmacist when he picked them up. As per the Pharmacist Discharge Counseling for Stroke Patients Protocol, this phone call has been completed within 72 hours of discharge. Thank you for allowing us to be involved in the care of this patient. - Home Medications: New Rx's Medication Instructions Recorded clopidogrel 75 mg tablet 75 mg PO DAILY #90 tab 11/28/18 indapamide 1.25 mg tablet 1.25 mg PO DAILY #90 tab 01/09/19 atorvastatin 40 mg PO DAILY #30 tab 02/17/19 diltiazem HCl 300 mg 300 mg PO DAILY #30 cap 02/17/19 capsule,extended release 24 hr ferrous sulfate 325 mg PO TIDM #90 tab 02/17/19 lisinopril 2.5 mg PO HS #30 tab 02/17/19 pantoprazole 40 mg PO QAM #30 tab 02/17/19
== END 2019-02-17 11:11 | disposition home or self-care (01) | DRG 66 ==
LOC: 2S 12:46 → ED 12:46 → 2S 17:31 → SUATTDRO 21:05

== ENCOUNTER 2021-05-29 01:59 | Observation (INO) ==
[2021-05-29] MEDS ORDERED: SODIUM CHLORIDE 0.9% 500 ML IV SCH (02:15)
[2021-05-29 02:24] LABS: Basophils # (auto) 0.01 K/uL (0-0.2); Basophils % (auto) 0.2 %; Eosinophils # (auto) 0.02 K/uL (0-0.5); Eosinophils % (auto) 0.5 %; Hemoglobin 12.2 g/dL (12.0-16.0); Immature Granulocytes # (auto) 0.02 K/uL (0.00-0.02); Immature Granulocytes % (auto) 0.5 %; Lymphocytes # (auto) 0.44 K/uL (1.2-3.4); Lymphocytes % (auto) 10.3 %; Mean Corpuscular Hgb Conc 33.9 g/dL (32-36); Mean Corpuscular Volume 85.5 fL (80-100); Mean Platelet Volume 10.1 fL (7.4-10.4); Monocytes % (auto) 11.7 %; Neutrophils # (auto) 3.29 K/uL (1.4-6.5); Neutrophils % (auto) 76.8 %; Platelet Count 188 K/uL (130-400); RDW Coefficient of Variation 13.9 % (11.5-14.5); RDW Standard Deviation 43.2 fL (36.4-46.3); Red Blood Count 4.21 M/uL (4.2-5.4); White Blood Count 4.28 K/uL (4.8-10.8)
--- NOTE | 2021-05-29 02:40 | Emergency Department Note ---
Impression & Plan COVID-19, Weakness Admit to the [facility] ED Provider Note NAME: PAULO SCHWAB AGE: 75 SEX: F ARRIVES VIA: Ambulance INFORMANT: Patient and EMS ED PROVIDER(S): Cleopatra Blair DO CHIEF COMPLAINT: Weakness PLAN: Disposition: Admit to the [facility] group Condition: Stable MEDICAL DECISION MAKING: The patient suffers from dementia and small cell cancer of the lung. She presented here with increasing weakness and not able to get around as she norm ally can at home. Laboratory work-up was essentially normal. Urinalysis was unremarkable. Chest x-ray was negative. However, when nursing staff attempted to ambulate the patient, she could not bear weight or have a normal gait as she had no strength. Covid testing was positive. She had exposure to Covid last week. I reviewed these findings with the patient's who was at the bedside. I discussed the case with [facility] and they will evaluate for further management. Triage Nursing notes reviewed and agree with them. Additional history obtained from who is present to the bedside. Prior medical records reviewed Vital Signs: reviewed and unremarkable Differential diagnosis: Electrolyte abnormality, hypoglycemia, renal failure ER treatment provided: IV normal saline bolus Diagnostics interpreted by me: ECG: Normal sinus rhythm at a rate of [address] segment elevation or signs of ischemia. There is no ectopy. Cardiac Monitoring: Sinus rhythm at 85 Laboratory studies: See below Imaging studies: As per my interpretation Chest x-ray: No acute pulmonary infiltrates or consolidations HPI: 75/F arrives for evaluation of weakness. According to EMS, the patient has had increasing weakness over the past couple of days. The family is concerned that she is not getting around like she normally does. They have had to assist her much more than usual. The patient developed chest congestion earlier in the day yesterday and she seemed to sleep throughout the day. When she got up to go to the bathroom tonight, her explains that she slumped to the ground because she was unable to bear her own weight secondary to weakness. He explains that she was exposed to her daughter last week who had Covid. They did a home Covid test earlier in the day yesterday and it was negative. ROS: See above HPI for pertinent positives & negatives. A total of 10 systems reviewed with the and were otherwise negative. PAST MEDICAL HISTORY:See Below PAST SURGICAL HISTORY:See Below FAMILY HISTORY:See Below SOCIAL HISTORY:See Below HOME MEDICATIONS:See list ALLERGIES:None VITALS:See Below PHYSICAL EXAMINATION: General: The patient is pleasantly confused but follows commands easily. HEENT: Head - normocephalic and atraumatic. Pupils are equal, round, and reactive to light. Extraocular eye muscles are intact, and sclera are anicteric. Nose - moist nasal mucosa without discharge. Mouth -dry buccal mucosa. Oropharynx is nonerythematous and there is no tonsillar exudate or edema noted. Neck: Supple; no JVD or nuchal rigidity Heart: Regular rate and rhythm. There is a normal S1 and S2 with no murmurs, c licks, or gallops appreciated. Lungs: Clear to auscultation bilaterally with no wheezes, rales, or rhonchi. Abdomen: Soft, completely nontender, nondistended, with good bowel sounds. There are no palpable pulsatile masses or hepatosplenomegaly. There is no guarding, rigidity, or rebound noted. Extremities: No evidence of cyanosis, clubbing, or edema. There are easily palpable peripheral pulses. Skin: warm and dry with poor turgor and no rashes. ED COURSE: Times/Reassessments: 0205: The patient was evaluated in room A 3. A complete history and physical was performed. Previous electronic medical records were reviewed. An IV lock was initiated and labs are drawn as above. A twelve-lead EKG was obtained. An order was placed for continuous cardiac monitoring. The patient was in a normal sinus rhythm at a rate of 85. The patient was bolused with 500 cc of normal saline solution and then started on a normal saline drip. A portable chest x-ray was performed. The patient's arrived and was able to provide much more of a history for us. She was tested for Covid and this was positive. Nursing staff attempted to ambulate the patient but she was unable to bear her own weight secondary to weakness. I discussed the case with the [facility] hospitalist group and they will evaluate for further care. Cleopatra Blair DO Past Med/Surg History Medical History (Updated 05/29/21 @ 06:20 by Cleopatra Blair DO) Abnormal PET of right lung ASCVD (arteriosclerotic cardiovascular disease) Carotid stenosis, bilateral < 50% per vascular and PCP records Chronic bronchitis Chronic cerebral ischemia Chronic cough COPD (chronic obstructive pulmonary disease) Follows with [place] pulmonology Dr. Marvin Shewrood pt will need husbands help> not really able to answer questions- follows with [place] neuro Dr. Harris DVT (deep venous thrombosis) APPROX 4 YRS AGO> PLAVIX AND STENT PLACED> UNKNOWN CAUSE Dyslipidemia Former heavy tobacco smoker Gastric ulcer resolved History of recent blood transfusion 01/2019 2 units Hx of falling Hypertension Hypokalemia Iron deficiency anemia Mass of upper lobe of right lung Muscular deconditioning Peripheral arterial disease follows with [facility] vascular, s/p right common iliac artery stent and angioplasty of left common iliac artery Positive occult stool blood test RESOLVED Prediabetes last A1c 5.8% 05/2020 Renal artery stenosis proximal R NANCIE on duplex 2018-follows with [place] nephrology Dr. Valdes Stage 3a chronic kidney disease (CKD) Stroke 02/15/2019--unknown etiology--follows with [place] neuro, Dr. Harris Vitamin D deficiency Surgical History H/O varicose vein ligation History of bronchoscopy EBUS on 04/06/21 History of cataract surgery BILAT History of colonoscopy History of esophagogastroduodenoscopy (EGD) History of Mohs micrographic surgery for skin cancer forehead S/P insertion of iliac artery stent @ [facility] 2019 S/P tubal ligation Family History Mother Dementia Other Cancer Emphysema lung Heart disease Lung disease No family history of adverse response to anesthesia Denies family history of Diabetes Asthma Social History Smoking Status: Unknown if ever smoked Tobacco Type: Cigarettes packs per day: 1; Years Smoked: 50; Second Hand Exposure: Yes ( smoked, mom smoked); Hx Alcohol Use: Yes Alcohol type: beer Hx Substance Use: No Preferred Language: Yi Communication Ability: Effective Visual Impairment: No Limitations Hearing Ability: Normal Jd Edwards Required: No Beliefs That Will Affect Care: None marital status: Current Living Situation: Spouse current occupational status: retired Feels Safe at Home: Yes caffeine: Yes Assistive Devices: Glasses Allergies Allergies Allergy/AdvReac Type Severity Reaction Status Date / Time No Known Drug Allergies Allergy Unknown Verified 05/29/21 02:31 Home Meds Home Medications Medication Instructions Recorded Confirmed cholecalciferol (vitamin D3) 125 125 mcg PO QDL 05/13/20 05/29/21 mcg (5,000 unit) capsule ferrous sulfate 325 mg (65 mg 325 mg PO QAM tab 03/09/21 05/29/21 iron) tablet,delayed release atorvastatin 40 mg tablet 40 mg PO HS 05/29/21 05/29/21 indapamide 1.25 mg tablet 1.25 mg PO QAM 05/29/21 05/29/21 lisinopril 2.5 mg tablet 2.5 mg PO QPM 05/29/21 05/29/21 Previous Rx's Medication Instructions Recorded pantoprazole 40 mg tablet,delayed 40 mg PO BID 90 Days #180 tab 01/17/21 release diltiazem HCl 300 mg 300 mg PO QAM #90 cap 03/09/21 capsule,extended release 24 hr mirtazapine 15 mg tablet 15 mg PO HS #30 tab 05/17/21 clopidogrel 75 mg tablet 75 mg PO QAM #90 tab 05/21/21 Results & Data (ED) Vital Signs Vital Signs - 24 hr 05/29/21 02:03 05/29/21 02:20 05/29/21 04:06 Temperature 36.9 C Temperature Source Oral Pulse Rate 85 Pulse Rate [Apical] 82 Respiratory Rate 16 17 Blood Pressure 119/62 Blood Pressure [Left Arm] 121/55 L Blood Pressure Mean 81 Blood Pressure Mean [Left Arm] 77 Pulse Oximetry 95 94 Oxygen Delivery Method Room Air Room Air Sepsis Recent Fever Within 48 Hours No Sepsis New/Unexplained Change in Mental Status No Sepsis Action Taken by Nursing No Action Required 05/29/21 05:21 Temperature Temperature Source Pulse Rate Pulse Rate [Apical] 78 Respiratory Rate 16 Blood Pressure Blood Pressure [Left Arm] 116/70 Blood Pressure Mean Blood Pressure Mean [Left Arm] 85 Pulse Oximetry 98 Oxygen Delivery Method Room Air Sepsis Recent Fever Within 48 Hours Sepsis New/Unexplained Change in Mental Status Sepsis Action Taken by Nursing Laboratory Data Result diagrams: 05/29/21 02:15 05/29/21 02:15 Lab Results 05/29/21 05/29/21 05/29/21 Range/Units 02:15 02:15 02:15 WBC 4.28 L (4.8-10.8) K/uL RBC 4.21 (4.2-5.4) M/uL Hgb 12.2 (12.0-16.0) g/dL Hct 36.0 L (37-47) % MCV 85.5 (80-100) fL MCH 29.0 (25-34) pg MCHC 33.9 (32-36) g/dL RDW Std Deviation 43.2 (36.4-46.3) fL RDW Coeff of Pedro 13.9 (11.5-14.5) % Plt Count 188 (130-400) K/uL MPV 10.1 (7.4-10.4) fL Immature Gran % (Auto) 0.5 % Neut % (Auto) 76.8 % Lymph % (Auto) 10.3 % [place] % (Auto) 11.7 % Eos % (Auto) 0.5 % Baso % (Auto) 0.2 % Neut # (Auto) 3.29 (1.4-6.5) K/uL Lymph # (Auto) 0.44 L (1.2-3.4) K/uL [place] # (Auto) 0.50 (0.11-0.59) K/uL Eos # (Auto) 0.02 (0-0.5) K/uL Baso # (Auto) 0.01 (0-0.2) K/uL Immature Gran # (Auto) 0.02 (0.00-0.02) K/uL Sodium 133 L (136-145) mmol/L Potassium 3.0 L (3.5-5.1) mmol/L Chloride 98 (98-107) mmol/L Carbon Dioxide 24 (21-32) mmol/L Anion Gap 11 (3-11) BUN 12 (6-23) mg/dl Creatinine 0.86 (0.6-1.2) mg/dl Est Cr Clr Drug Dosing 45.4 ml/min Est GFR ( Amer) 77.7 ml/min Est GFR (Non-Af Amer) 67.0 ml/min BUN/Creatinine Ratio 14.0 (10-20) Glucose 119 H (70-99(Fasting)) mg/dl Calcium 9.5 (8.5-10.1) mg/dl Total Bilirubin 0.4 (0.2-1.0) mg/dl AST 17 (13-39) U/L ALT 15 (7-52) U/L Alkaline Phosphatase 88 (34-104) U/L Total Protein 6.3 (6.0-8.3) gm/dl Albumin 3.7 (3.4-5.0) gm/dl Globulin 2.6 (2.5-4.0) gm/dl Albumin/Globulin Ratio 1.4 (0.9-2) TSH 2.647 (0.300-4.500) uIu/ml Urine Color Urine Appearance (Clear) Urine pH (4.5-7.5) Ur Specific [place] (1.000-1.030) Urine Protein (Negative) Urine Glucose (UA) (Negative) Urine Ketones (Negative) Urine Blood (Negative) Urine Nitrite (Negative) Urine Bilirubin (Negative) Urine Urobilinogen (Negative) Ur Leukocyte Esterase (Negative) SARS-CoV-2, RNA, NAAT (NEGATIVE) 05/29/21 05/29/21 Range/Units 03:20 03:20 WBC (4.8-10.8) K/uL RBC (4.2-5.4) M/uL Hgb (12.0-16.0) g/dL Hct (37-47) % MCV (80-100) fL MCH (25-34) pg MCHC (32-36) g/dL RDW Std Deviation (36.4-46.3) fL RDW Coeff of Pedro (11.5-14.5) % Plt Count (130-400) K/uL MPV (7.4-10.4) fL Immature Gran % (Auto) % Neut % (Auto) % Lymph % (Auto) % [place] % (Auto) % Eos % (Auto) % Baso % (Auto) % Neut # (Auto) (1.4-6.5) K/uL Lymph # (Auto) (1.2-3.4) K/uL [place] # (Auto) (0.11-0.59) K/uL Eos # (Auto) (0-0.5) K/uL Baso # (Auto) (0-0.2) K/uL Immature Gran # (Auto) (0.00-0.02) K/uL Sodium (136-145) mmol/L Potassium (3.5-5.1) mmol/L Chloride (98-107) mmol/L Carbon Dioxide (21-32) mmol/L Anion Gap (3-11) BUN (6-23) mg/dl Creatinine (0.6-1.2) mg/dl Est Cr Clr Drug Dosing ml/min Est GFR ( Amer) ml/min Est GFR (Non-Af Amer) ml/min BUN/Creatinine Ratio (10-20) Glucose (70-99(Fasting)) mg/dl Calcium (8.5-10.1) mg/dl Total Bilirubin (0.2-1.0) mg/dl AST (13-39) U/L ALT (7-52) U/L Alkaline Phosphatase (34-104) U/L Total Protein (6.0-8.3) gm/dl Albumin (3.4-5.0) gm/dl Globulin (2.5-4.0) gm/dl Albumin/Globulin Ratio (0.9-2) TSH (0.300-4.500) uIu/ml Urine Color Yellow Urine Appearance Clear (Clear) Urine pH 7.0 (4.5-7.5) Ur Specific [place] 1.012 (1.000-1.030) Urine Protein Negative (Negative) Urine Glucose (UA) Negative (Negative) Urine Ketones Negative (Negative) Urine Blood Negative (Negative) Urine Nitrite Negative (Negative) Urine Bilirubin Negative (Negative) Urine Urobilinogen Negative (Negative) Ur Leukocyte Esterase Negative (Negative) SARS-CoV-2, RNA, NAAT POSITIVE A* (NEGATIVE) Administered Medications Discontinued Medications Sodium Chloride (Nss) 500 mls @ 999 mls/hr IV .Q31M [facility] Stop: 05/29/21 02:45 Last Infusion: 05/29/21 02:58 Dose: 0 mls/hr Documented by: [id number] Admin: 05/29/21 02:16 Dose: 999 mls/hr Documented by: [id number] Potassium Chloride (Potassium Chloride Crtab 20 Meq Tabcr) 60 meq PO NOW STA Stop: 05/29/21 05:05 Last Admin: 05/29/21 05:13 Dose: 60 meq Documented by: [id number] Discharge Plan Visit Data Chief Complaint: Weakness Stated Complaint: Weakness ED Provider: Cleopatra Blair Discharge Problem: COVID-19, Weakness Forms Stand Alone Forms: [facility] Prescriptions Prescriptions: No Action pantoprazole 40 mg tablet,delayed release (DR/EC) 40 mg PO BID 90 Days Qty: 180 RF: 3 clopidogrel 75 mg tablet 75 mg PO QAM Qty: 90 RF: 3 cholecalciferol (vitamin D3) 125 mcg (5,000 unit) capsule 125 mcg PO QDL RF: 0 mirtazapine 15 mg tablet 15 mg PO HS Qty: 30 RF: 2 diltiazem HCl 300 mg capsule,extended release 24hr 300 mg PO QAM Qty: 90 RF: 3 ferrous sulfate 325 mg (65 mg iron) tablet,delayed release (DR/EC) 325 mg PO QAM RF: 0 atorvastatin 40 mg tablet 40 mg PO HS RF: 0 indapamide 1.25 mg tablet 1.25 mg PO QAM RF: 0 lisinopril 2.5 mg tablet 2.5 mg PO QPM RF: 0 Referrals Referrals: Chelsea Morton MD [Primary Care Provider] -
[2021-05-29 02:44] LABS: Albumin Globulin Ratio 1.4 (0.9-2); Albumin Level 3.7 gm/dl (3.4-5.0); Bilirubin,Total 0.4 mg/dl (0.2-1.0); Calcium 9.5 mg/dl (8.5-10.1); Creatinine Clr Calc Pharmacy 45.4 ml/min; Est GFR (African American) 77.7 ml/min; Globulin 2.6 gm/dl (2.5-4.0); Total Protein 6.3 gm/dl (6.0-8.3)
[2021-05-29 03:37] LABS: Appearance Urine Clear (Clear); Bilirubin Urine Negative (Negative); Blood Urine Negative (Negative); Color Urine Yellow; Glucose Urine UA Negative (Negative); Ketones Urine Negative (Negative); Leukocyte Esterase Urine Negative (Negative); Nitrite Urine Negative (Negative); Protein Urine Negative (Negative); Specific Gravity Urine 1.012 (1.000-1.030); Urobilinogen Urine Negative (Negative)
[2021-05-29] MEDS ORDERED: POTASSIUM CHLORIDE CRTAB 20 MEQ TABCR PO STA (05:04)
--- NOTE | 2021-05-29 05:20 | History & Physical Report ---
Date of Service May 29, 2021 Assessment & Plan (1) COVID-19: Plan: 75yo female presenting with diffuse generalized weakness, inability to ambulate in setting of Covid-19 diagnosis. Symptoms have been ongoing x 2 days. Patient is fully vaccinated. She has a mild productive cough, otherwise no complaints of SOB, abdominal pain, nausea, vomiting, diarrhea. Saturations are acceptable on room air. No indication for treatment with steroids or dexamethasone -Observation to medical with isolation precautions -Continue to monitor oxygen levels -Lovenox 40mg BID (2) Small cell lung cancer in adult: Plan: Patient with SCC lung presently on XRT. 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 She follows with Neurology. Failed trial of Aricept and Namenda as well as OTC supplement Citicholine. She has some associated behavioral disturbances including wandering at night, occasional agitation -Continue Remeron 15mg po qHS -Frequent orientation (4) ASCVD (arteriosclerotic cardiovascular disease): Plan: Chronic. Stable. No CP. -Continue Plavix, Lisinopril (5) COPD (chronic obstructive pulmonary disease): Plan: Chronic. No medications currently -Continue to monitor (6) Dyslipidemia: Plan: Chronic -Continue Atorvastatin 40mg po qHS (7) Hypertension: Plan: Well controlled. -Continue Diltiazem, Indapamide and Lisinopril Plan: F/E/N -Heplock. Encourage PO intake. K repletion with 60meq, repeat chemistry in AM, regular diet as tolerated with aspiration precautions Ppx - Lovenox 40 BID Code - Full per discussion with patient Dispo - Observation to medical, isolation precautions for Covid History of Present Illness Chief Complaint: weakness Primary Care Provider: Chelsea Morton MD Lata Tejeda is a 75yo female with history of small cell lung CA of RUL presently receiving XRT (s/p 18/20 treatments), HTN, HLP, CKD, prior CVA and Dementia presenting with Covid-19 infection and generalized weakness. Patient has become more weak over the last two days. She got up this evening to go to the bathroom and was unable to ambulate. Her assisted her to the floor but was unable to get her up. She has a cough productive for minimal amount of sputum. Otherwise, no fever/chills/CP/SOB/abdominal pain/nausea/vomiting/diarrhea or constipation. No additional complaints at this time. She is resting comfortably with adequate oxygenation on room air. Labs are significant for mild leukopenia as well as hyponatremia with Na of 133 and hypokalemia with K=3 CXR shows no infiltrate or airspace disease ER Course: NSS x 500mL Allergies Allergy/AdvReac Type Severity Reaction Status Date / Time No Known Drug Allergies Allergy Unknown Verified 05/29/21 02:31 Home Medications Medication Instructions Recorded Confirmed Type cholecalciferol (vitamin D3) 125 125 mcg PO QDL 05/13/20 05/29/21 History mcg (5,000 unit) capsule pantoprazole 40 mg tablet,delayed 40 mg PO BID 90 Days #180 tab 01/17/21 05/29/21 Rx release diltiazem HCl 300 mg 300 mg PO QAM #90 cap 03/09/21 05/29/21 Rx capsule,extended release 24 hr ferrous sulfate 325 mg (65 mg 325 mg PO QAM tab 03/09/21 05/29/21 History iron) tablet,delayed release mirtazapine 15 mg tablet 15 mg PO HS #30 tab 05/17/21 05/29/21 Rx clopidogrel 75 mg tablet 75 mg PO QAM #90 tab 05/21/21 05/29/21 Rx atorvastatin 40 mg tablet 40 mg PO HS 05/29/21 05/29/21 History indapamide 1.25 mg tablet 1.25 mg PO QAM 05/29/21 05/29/21 History lisinopril 2.5 mg tablet 2.5 mg PO QPM 05/29/21 05/29/21 History Past Med/Surg History Medical History (Updated 05/29/21 @ 05:23 by Lacie Sharif DO) Abnormal PET of right lung ASCVD (arteriosclerotic cardiovascular disease) Carotid stenosis, bilateral < 50% per vascular and PCP records Chronic bronchitis Chronic cerebral ischemia Chronic cough COPD (chronic obstructive pulmonary disease) Follows with [facility] pulmonology Dr. Wong Dementia pt will need husbands help> not really able to answer questions- follows with [facility] neuro Dr. Harris DVT (deep venous thrombosis) APPROX 4 YRS AGO> PLAVIX AND STENT PLACED> UNKNOWN CAUSE Dyslipidemia Former heavy tobacco smoker Gastric ulcer resolved History of recent blood transfusion 01/2019 2 units Hx of falling Hypertension Hypokalemia Iron deficiency anemia Mass of upper lobe of right lung Muscular deconditioning Peripheral arterial disease follows with [facility] vascular, s/p right common iliac artery stent and angioplasty of left common iliac artery Positive occult stool blood test RESOLVED Prediabetes last A1c 5.8% 05/2020 Renal artery stenosis proximal R NANCIE on duplex 2018-follows with [place] nephrology Dr. Valdes Stage 3a chronic kidney disease (CKD) Stroke 02/15/2019--unknown etiology--follows with [place] neuro, Dr. Harris Vitamin D deficiency Surgical History H/O varicose vein ligation History of bronchoscopy EBUS on 04/06/21 History of cataract surgery BILAT History of colonoscopy History of esophagogastroduodenoscopy (EGD) History of Mohs micrographic surgery for skin cancer forehead S/P insertion of iliac artery stent @ [facility] 2018 S/P tubal ligation Family History Mother Dementia Other Cancer Emphysema lung Heart disease Lung disease No family history of adverse response to anesthesia Denies family history of Diabetes Asthma Social History Smoking Status: Unknown if ever smoked Tobacco Type: Cigarettes packs per day: 1; Years Smoked: 50; Second Hand Exposure: Yes ( smoked, mom smoked); Hx Alcohol Use: Yes Alcohol type: beer Hx Substance Use: No Preferred Language: Singaporean Communication Ability: Effective Visual Impairment: No Limitations Hearing Ability: Normal [employer] Furnace Installer Required: No Beliefs That Will Affect Care: None marital status: Current Living Situation: Spouse current occupational status: retired Feels Safe at Home: Yes caffeine: Yes Assistive Devices: Glasses Review of Systems Review of Systems: All systems reviewed & are unremarkable except as noted in HPI & below Physical Exam Physical Exam: General: patient resting comfortably, NAD, non-toxic in appearance, AA&O x 4 Skin: warm, dry, intact, no rashes or lesions HEENT: NC/AT, PERRL, EOMI, anicteric sclera, conjunctiva without injection, external ear normal to inspection and nontender, nares patent, moist mucus membranes, dentition intact, no oropharyngeal lesions, neck supple, trachea midline, no LAD, no thyromegaly, no JVD Heart: +S1/S2, regular, no m/r/g Lungs: equal air entry bilaterally, no rales/rhonchi/wheezes Abd: +BS, soft, NT/ND, no masses/organomegaly/ascites Ext: warm, 2+ pulses in UE/LE bilaterally, no clubbing/cyanosis or edema Neuro: nonfocal, patient AA&O x 4, speech intact, no facial droop, moving all extremities on command with equal strength 5/5 Results & Data Results & Data ([facility] [place]) Vital Signs (Past 12 Hours) Vital Signs Temp Pulse Pulse Resp BP BP Pulse Ox 05/29/21 04:06 82 17 121/55 L 94 05/29/21 02:20 95 05/29/21 02:03 36.9 C 85 16 119/62 Laboratory Results Laboratory Results WBC 4.28 K/uL (4.8-10.8) L 05/29/21 02:15 RBC 4.21 M/uL (4.2-5.4) 05/29/21 02:15 Hgb 12.2 g/dL (12.0-16.0) 05/29/21 02:15 Hct 36.0 % (37-47) L 05/29/21 02:15 MCV 85.5 fL (80-100) 05/29/21 02:15 MCH 29.0 pg (25-34) 05/29/21 02:15 MCHC 33.9 g/dL (32-36) 05/29/21 02:15 RDW Std Deviation 43.2 fL (36.4-46.3) 05/29/21 02:15 RDW Coeff of Pedro 13.9 % (11.5-14.5) 05/29/21 02:15 Plt Count 188 K/uL (130-400) 05/29/21 02:15 MPV 10.1 fL (7.4-10.4) 05/29/21 02:15 Immature Gran % (Auto) 0.5 % 05/29/21 02:15 Neut % (Auto) 76.8 % 05/29/21 02:15 Lymph % (Auto) 10.3 % 05/29/21 02:15 [place] % (Auto) 11.7 % 05/29/21 02:15 Eos % (Auto) 0.5 % 05/29/21 02:15 Baso % (Auto) 0.2 % 05/29/21 02:15 Neut # (Auto) 3.29 K/uL (1.4-6.5) 05/29/21 02:15 Lymph # (Auto) 0.44 K/uL (1.2-3.4) L 05/29/21 02:15 [place] # (Auto) 0.50 K/uL (0.11-0.59) 05/29/21 02:15 Eos # (Auto) 0.02 K/uL (0-0.5) 05/29/21 02:15 Baso # (Auto) 0.01 K/uL (0-0.2) 05/29/21 02:15 Immature Gran # (Auto) 0.02 K/uL (0.00-0.02) 05/29/21 02:15 Sodium 133 mmol/L (136-145) L 05/29/21 02:15 Potassium 3.0 mmol/L (3.5-5.1) L 05/29/21 02:15 Chloride 98 mmol/L (98-107) 05/29/21 02:15 Carbon Dioxide 24 mmol/L (21-32) 05/29/21 02:15 Anion Gap 11 (3-11) 05/29/21 02:15 BUN 12 mg/dl (6-23) 05/29/21 02:15 Creatinine 0.86 mg/dl (0.6-1.2) 05/29/21 02:15 Est Cr Clr Drug Dosing 45.4 ml/min 05/29/21 02:15 Est GFR ( Amer) 77.7 ml/min 05/29/21 02:15 Est GFR (Non-Af Amer) 67.0 ml/min 05/29/21 02:15 BUN/Creatinine Ratio 14.0 (10-20) 05/29/21 02:15 Glucose 119 mg/dl (70-99(Fasting)) H 05/29/21 02:15 Calcium 9.5 mg/dl (8.5-10.1) 05/29/21 02:15 Total Bilirubin 0.4 mg/dl (0.2-1.0) 05/29/21 02:15 AST 17 U/L (13-39) 05/29/21 02:15 ALT 15 U/L (7-52) 05/29/21 02:15 Alkaline Phosphatase 88 U/L (34-104) 05/29/21 02:15 Total Protein 6.3 gm/dl (6.0-8.3) 05/29/21 02:15 Albumin 3.7 gm/dl (3.4-5.0) 05/29/21 02:15 Globulin 2.6 gm/dl (2.5-4.0) 05/29/21 02:15 Albumin/Globulin Ratio 1.4 (0.9-2) 05/29/21 02:15 TSH 2.647 uIu/ml (0.300-4.500) 05/29/21 02:15 Urine Color Yellow 05/29/21 03:20 Urine Appearance Clear (Clear) 05/29/21 03:20 Urine pH 7.0 (4.5-7.5) 05/29/21 03:20 Ur Specific [place] 1.012 (1.000-1.030) 05/29/21 03:20 Urine Protein Negative (Negative) 05/29/21 03:20 Urine Glucose (UA) Negative (Negative) 05/29/21 03:20 Urine Ketones Negative (Negative) 05/29/21 03:20 Urine Blood Negative (Negative) 05/29/21 03:20 Urine Nitrite Negative (Negative) 05/29/21 03:20 Urine Bilirubin Negative (Negative) 05/29/21 03:20 Urine Urobilinogen Negative (Negative) 05/29/21 03:20 Ur Leukocyte Esterase Negative (Negative) 05/29/21 03:20 SARS-CoV-2, RNA, NAAT POSITIVE (NEGATIVE) A* 05/29/21 03:20 Code Status & VTE Plan VTE Prophylaxis Plan VTE Prophylaxis will be ordered: Yes PG Care Time/CCT Total # of Minutes Spent Total Time Spent with Patient: Total time spent is greater than 50% in coordination of care (as documented) at patient's floor/unit and/or counseling patient: Coding Level of Care Code INT OBSERVATION CARE 70M LVL 3 Diagnoses Dementia F03.90 Small cell lung cancer in adult C34.90 ASCVD (arteriosclerotic cardiovascular disease) I25.10 COPD (chronic obstructive pulmonary disease) J44.9 Dyslipidemia E78.5 Hypertension I10 Hypertension type: unspecified COVID-19 U07.1 (1) Hypertension Hypertension type: unspecified Qualified Code(s): I10 - Essential (primary) hypertension
--- NOTE | 2021-05-29 07:15 | XRay Report ---
XR chest 1V portable CLINICAL HISTORY: weakness. Evaluate cardiopulmonary status COMPARISON STUDY: 04/06/2021 TECHNIQUE: 1 view of the chest FINDINGS: Single frontal view of the chest demonstrates the cardiomediastinal silhouette to be within normal li mits. The lungs are clear of alveolar opacities. There is no evidence for pleural effusion. There is no evidence for vascular congestion. There is no acute osseous pathology. IMPRESSION: 1. No acute cardiopulmonary disease. ACT 112: Negative or not required by law. Electronically signed by: Nick Daniel M.D. 05/29/2021 7:14 AM
[2021-05-29] MEDS ORDERED: ACETAMINOPHEN 325 MG TAB PO PRN (07:59)
[2021-05-29] MEDS ORDERED: DOCUSATE SODIUM 100 MG CAP PO PRN (07:59)
[2021-05-29] MEDS ORDERED: ONDANSETRON INJ 2 MG/ML 2 ML VIAL IV PRN (07:59)
[2021-05-29] MEDS: CLOPIDOGREL BISULFATE 75 MG TAB PO SCH (08:50)
[2021-05-29] MEDS: dilTIAZem HCL 300 MG CAPCR PO SCH (08:50)
[2021-05-29] MEDS: PANTOprazole 40 MG TAB PO SCH ×2 (08:50→20:46)
[2021-05-29] MEDS: INDAPAMIDE 1.25 MG TAB PO SCH (08:50)
[2021-05-29] MEDS: ENOXAPARIN INJ 40 MG/0.4 ML SYR SQ SCH ×2 (08:51→20:46)
[2021-05-29 08:52] LABS: C Reactive Protein 1.87 mg/dl (0-0.5); Magnesium 1.3 mg/dl (1.7-2.4)
--- NOTE | 2021-05-29 12:58 | Electrocardiogram Report ---
Test Reason : Blood Pressure : / mmHG Vent. Rate : 088 BPM Atrial Rate : 088 BPM P-R Int : 176 ms QRS Dur : 072 ms QT Int : 366 ms P-R-T Axes : 057 032 053 degrees QTc Int : 442 ms Poor data quality, interpretation may be adversely affected Normal sinus rhythm Possible Left atrial enlargement Borderline ECG When compared with ECG of 06-APR-2021 09:50, No significant change was found Confirmed by Dwight Crews ([id number]) on 05/29/2021 12:57:28 PM Referred By: REFERRED SELF Confirmed By:Dwight Crews
[2021-05-29] MEDS: CHOLECALCIFEROL 5,000 UNITS 125 MCG TAB PO SCH (13:50)
[2021-05-29] MEDS: MIRTAZAPINE TAB 15 MG TAB PO SCH (20:46)
[2021-05-29] MEDS: ATORVASTATIN 40 MG TAB PO SCH (20:46)
[2021-05-29] MEDS: lisinopril 2.5 MG TAB PO SCH (20:47)
[2021-05-30 07:48] LABS: Basophils # (auto) 0.01 K/uL (0-0.2); Basophils % (auto) 0.3 %; Eosinophils # (auto) 0.01 K/uL (0-0.5); Eosinophils % (auto) 0.3 %; Hematocrit (blood only) 36.6 % (37-47); Hemoglobin 12.7 g/dL (12.0-16.0); Immature Granulocytes # (auto) 0.01 K/uL (0.00-0.02); Immature Granulocytes % (auto) 0.3 %; Lymphocytes # (auto) 0.45 K/uL (1.2-3.4); Mean Corpuscular Hemoglobin 29.8 pg (25-34); Mean Corpuscular Hgb Conc 34.7 g/dL (32-36); Mean Corpuscular Volume 85.9 fL (80-100); Mean Platelet Volume 10.4 fL (7.4-10.4); Monocytes # (auto) 0.57 K/uL (0.11-0.59); Monocytes % (auto) 15.2 %; Neutrophils # (auto) 2.69 K/uL (1.4-6.5); Neutrophils % (auto) 71.9 %; Platelet Count 213 K/uL (130-400); RDW Coefficient of Variation 14.1 % (11.5-14.5); Red Blood Count 4.26 M/uL (4.2-5.4); White Blood Count 3.74 K/uL (4.8-10.8)
[2021-05-30 08:23] LABS: BUN Creatinine Ratio 11.8 (10-20); Calcium 9.6 mg/dl (8.5-10.1); Creatinine Clr Calc Pharmacy 32.7 ml/min; Est GFR (African American) 57.7 ml/min; Est GFR (Non-African American) 49.8 ml/min; Potassium 3.7 mmol/L (3.5-5.1)
[2021-05-30] MEDS: ENOXAPARIN INJ 40 MG/0.4 ML SYR SQ SCH ×2 (09:15→20:31)
[2021-05-30] MEDS: INDAPAMIDE 1.25 MG TAB PO SCH (09:16)
[2021-05-30] MEDS: dilTIAZem HCL 300 MG CAPCR PO SCH (09:16)
[2021-05-30] MEDS: CLOPIDOGREL BISULFATE 75 MG TAB PO SCH (09:16)
[2021-05-30] MEDS: PANTOprazole 40 MG TAB PO SCH ×2 (09:17→20:30)
[2021-05-30] MEDS: CHOLECALCIFEROL 5,000 UNITS 125 MCG TAB PO SCH (11:30)
[2021-05-30] MEDS: ATORVASTATIN 40 MG TAB PO SCH (20:30)
[2021-05-30] MEDS: MIRTAZAPINE TAB 15 MG TAB PO SCH (20:30)
[2021-05-30] MEDS: lisinopril 2.5 MG TAB PO SCH (20:31)
--- NOTE | 2021-05-30 20:51 | Hospitalist Progress Note ---
Date of Service May 30, 2021 Assessment & Plan (1) COVID-19: Plan: 75yo female presenting with diffuse generalized weakness, inability to ambulate in setting of Covid-19 diagnosis. Symptoms have been ongoing x 2 days. Patient is fully vaccinated. She has a mild productive cough, otherwise no complaints of SOB, abdominal pain, nausea, vomiting, diarrhea. Saturations are acceptable on room air. No indication for treatment with steroids or dexamethasone -Observation to medical with isolation precautions -Continue to monitor oxygen levels -Lovenox 40mg BID plan to discharge home in AM. PT recommends home with 24/7 care. May benefit from home PT. considering transitioning to ad terminal makeup operator care at [facility] care facility. This though will be done after discharge. 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 She follows with Neurology. Failed trial of Aricept and Namenda as well as OTC supplement Citicholine. She has some associated behavioral disturbances including wandering at night, occasional agitation -Continue Remeron 15mg po qHS -Frequent orientation (4) ASCVD (arteriosclerotic cardiovascular disease): Plan: Chronic. Stable. No CP. -Continue Plavix, Lisinopril (5) COPD (chronic obstructive pulmonary disease): Plan: Chronic. No medications currently -Continue to monitor (6) Dyslipidemia: Plan: Chronic -Continue Atorvastatin 40mg po qHS (7) Hypertension: Plan: Well controlled. -Continue Diltiazem, Indapamide and Lisinopril Plan: F/E/N -Heplock. Encourage PO intake. K repletion with 60meq, repeat chemistry in AM, regular diet as tolerated with aspiration precautions Ppx - Lovenox 40 BID Code - Full per discussion with patient Admission and Anticipated Discharge Date Admission Date: May 29, 2021 Subjective 75 yo female has dementia, poor historian. updated on phone. Review of Systems Review of Systems: All systems reviewed & are unremarkable except as noted in HPI & below Physical Exam Physical Exam: General: patient resting comfortably, NAD, non-toxic in appearance Skin: warm, dry, intact, no rashes or lesions HEENT: NC/AT, PERRL, EOMI, anicteric sclera, conjunctiva without injection, external ear normal to inspection and nontender, nares patent, moist mucus membranes, dentition intact, no oropharyngeal lesions, neck supple, trachea midline, no LAD, no thyromegaly, no JVD Heart: +S1/S2, regular, no m/r/g Lungs: equal air entry bilaterally, no rales/rhonchi/wheezes Abd: +BS, soft, NT/ND, no masses/organomegaly/ascites Ext: warm, 2+ pulses in UE/LE bilaterally, no clubbing/cyanosis or edema Neuro: nonfocal, speech intact, no facial droop, moving all extremities on command with equal strength 5/5 Results & Data Results & Data ([facility]) Vital Signs (Past 12 Hours) Vital Signs Temp Pulse Resp BP Pulse Ox 05/30/21 15:50 36.9 C 85 18 124/72 95 PG Care Time/CCT Total # of Minutes Spent Total Time Spent with Patient: Total time spent is greater than 50% in coordination of care (as documented) at patient's floor/unit and/or counseling patient: Coding Level of Care Code 15840 Subseq Hosp Care Lvl 3 Diagnoses COVID-19 U07.1 Small cell lung cancer in adult C34.90 Dementia F03.90 ASCVD (arteriosclerotic cardiovascular disease) I25.10 COPD (chronic obstructive pulmonary disease) J44.9 Dyslipidemia E78.5 Hypertension I10 Hypertension type: unspecified Time Spent (min) 35 (1) Hypertension Hypertension type: unspecified Qualified Code(s): I10 - Essential (primary) hypertension
[2021-05-30 23:00] VITALS: TEMP 98.2
--- NOTE | 2021-05-31 08:31 | Hospitalist Progress Note ---
Date of Service May 31, 2021 Assessment & Plan (1) COVID-19: Plan: 75yo female presenting with diffuse generalized weakness, inability to ambulate in setting of Covid-19 diagnosis. Symptoms have been ongoing x 2 days. Patient is fully vaccinated. She has a mild productive cough, otherwise no complaints of SOB, abdominal pain, nausea, vomiting, diarrhea. Saturations are acceptable on room air. No indication for treatment with steroids or dexamethasone -Observation to medical with isolation precautions -Continue to monitor oxygen levels -Lovenox 40mg BID PT recommends home with 24/7 care. May benefit from home PT. considering transitioning to intermediate card tender care at [facility]. 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 She follows with Neurology. Failed trial of Aricept and Namenda as well as OTC supplement Citicholine. She has some associated behavioral disturbances including wandering at night, occasional agitation -Continue Remeron 15mg po qHS -Frequent orientation (4) ASCVD (arteriosclerotic cardiovascular disease): Plan: Chronic. Stable. No CP. -Continue Plavix, Lisinopril (5) COPD (chronic obstructive pulmonary disease): Plan: Chronic. No medications currently -Continue to monitor (6) Dyslipidemia: Plan: Chronic -Continue Atorvastatin 40mg po qHS (7) Hypertension: Plan: Well controlled. -Continue Diltiazem, Indapamide and Lisinopril Plan: F/E/N -Heplock. Encourage PO intake. K repletion with 60meq, repeat chemistry in AM, regular diet as tolerated with aspiration precautions Ppx - Lovenox 40 BID Code - Full per discussion with patient Admission and Anticipated Discharge Date Admission Date: May 30, 2021 Results & Data Results & Data ([facility]) Vital Signs (Past 12 Hours) Vital Signs Temp Pulse Resp BP Pulse Ox 05/30/21 22:59 98.2 F 98 H 18 108/62 96 PG Care Time/CCT Total # of Minutes Spent Total Time Spent with Patient: Total time spent is greater than 50% in coordination of care (as documented) at patient's floor/unit and/or counseling patient: Coding Diagnoses COVID-19 U07.1 Small cell lung cancer in adult C34.90 Dementia F03.90 ASCVD (arteriosclerotic cardiovascular disease) I25.10 COPD (chronic obstructive pulmonary disease) J44.9 Dyslipidemia E78.5 Hypertension I10 Hypertension type: unspecified (1) Hypertension Hypertension type: unspecified Qualified Code(s): I10 - Essential (primary) hypertension
[2021-05-31] MEDS: CLOPIDOGREL BISULFATE 75 MG TAB PO SCH (09:09)
[2021-05-31] MEDS: INDAPAMIDE 1.25 MG TAB PO SCH (09:10)
[2021-05-31] MEDS: dilTIAZem HCL 300 MG CAPCR PO SCH (09:10)
[2021-05-31] MEDS: PANTOprazole 40 MG TAB PO SCH (09:10)
[2021-05-31] MEDS: CHOLECALCIFEROL 5,000 UNITS 125 MCG TAB PO SCH (11:49)
[2021-05-31] MEDS: ENOXAPARIN INJ 40 MG/0.4 ML SYR SQ SCH (11:50)
--- NOTE | 2021-05-31 13:01 | Discharge Summary ---
Date of Service May 31, 2021 Admission HPI Per Admitting Provider Lata Tejeda is a 75yo female with history of small cell lung CA of RUL presently receiving XRT (s/p 18/20 treatments), HTN, HLP, CKD, prior CVA and Dementia presenting with Covid-19 infection and generalized weakness. Patient has become more weak over the last two days. She got up this evening to go to the bathroom and was unable to ambulate. Her assisted her to the floor but was unable to get her up. She has a cough productive for minimal amount of sputum. Otherwise, no fever/chills/CP/SOB/abdominal pain/nausea/vomiting/diarrhea or constipation. No additional complaints at this time. She is resting comfortably with adequate oxygenation on room air. Labs are significant for mild leukopenia as well as hyponatremia with Na of 133 and hypokalemia with K=3 CXR shows no infiltrate or airspace disease ER Course: NSS x 500mL Principal Diagnosis covid infection scca lung cancer weakness Discharge Exam The patient appeared well is definitely demented more than her age would suggest Vital signs as documented. Lungs are clear to auscultation and appear unlabored Cardiac exam, Rhythm is regular.. No murmurs, rubs or gallops. Abdominal exam reveals normal bowel sounds, soft non tender, no masses Extremities are nonedematous and both pedal pulses are normal. Neurologic exam is alert and oriented x2 no focal loss of strength or sensation Skin is without bruises or rashes Psychologically is without concerns for anxiety or depression. Discharge Data Allergies Allergy/AdvReac Type Severity Reaction Status Date / Time No Known Drug Allergies Allergy Unknown Verified 05/29/21 02:31 Consultations 05/29/21 04:21 ED Decision to Admit Stat Hospital Course (1) COVID-19: 75yo female presenting with diffuse generalized weakness, inability to ambulate in setting of Covid-19 diagnosis. Symptoms have been ongoing x 2 days. Patient is fully vaccinated. She has a mild productive cough, otherwise no complaints of SOB, abdominal pain, nausea, vomiting, diarrhea. Saturations are acceptable on room air. No indication for treatment with steroids or dexamethasone -Observation to medical with isolation precautions -Continue to monitor oxygen levels -Lovenox 40mg BID PT recommends home with 24/7 care. May benefit from home PT. considering transitioning to salvage determiner care at memory care facility. 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 She follows with Neurology. Failed trial of Aricept and Namenda as well as OTC supplement Citicholine. She has some associated behavioral disturbances including wandering at night, occasional agitation -Continue Remeron 15mg po qHS -Frequent orientation (4) ASCVD (arteriosclerotic cardiovascular disease): Chronic. Stable. No CP. -Continue Plavix, Lisinopril (5) COPD (chronic obstructive pulmonary disease): Chronic. No medications currently Stable at this time (6) Dyslipidemia: Chronic -Continue Atorvastatin 40mg po qHS (7) Hypertension: Well controlled. -Continue Diltiazem, Indapamide and Lisinopril Code - Full per discussion with patient Total Time Total Time Spent Total Time Spent (In Minutes): It required greater than 30 minutes to prepare this patient for discharge Discharge Plan Discharge Items Patient Disposition: Home - Home Health Services Reason For Visit: Weakness Discharge Diagnosis: covid infection weakness h/o small cell lung cancer Activity: Resume your previous activity Non-emergency contact: Primary Care Provider and Oncologist Call non-emergency contact if: your symptoms worsen and you have a fever Follow-up/Referrals: Chelsea Morton MD [Primary Care Provider] - Diet: Regular Addtl Attending Provider Instructions: You have been diagnosed with covid infection, it would be recommended that you quarantine yourself for 10 days from your first test or first symptoms, and if at the 10th day you have no symptoms the you can come off quarantine but use common sense precautions. Quarantine means attempting to stay away from people who have not had an active covid infection in the past, and if you have to be around others to wear a mask even if you are indoors, do not share a room to sleep in with others until you are out of quarantine. If you still have symptoms at the 10th day, continue to quarantine until you are symptom free for 48 hours Pending Studies at Discharge: No Stand-Alone Forms: [employer], Smoking Cessation Medications and DC Order Prescriptions: Continued pantoprazole 40 mg tablet,delayed release (DR/EC) 40 mg PO BID 90 Days Qty: 180 RF: 3 clopidogrel 75 mg tablet 75 mg PO QAM Qty: 90 RF: 3 cholecalciferol (vitamin D3) 125 mcg (5,000 unit) capsule 125 mcg PO QDL RF: 0 mirtazapine 15 mg tablet 15 mg PO HS Qty: 30 RF: 2 diltiazem HCl 300 mg capsule,extended release 24hr 300 mg PO QAM Qty: 90 RF: 3 ferrous sulfate 325 mg (65 mg iron) tablet,delayed release (DR/EC) 325 mg PO QAM RF: 0 atorvastatin 40 mg tablet 40 mg PO HS RF: 0 indapamide 1.25 mg tablet 1.25 mg PO QAM RF: 0 lisinopril 2.5 mg tablet 2.5 mg PO QPM RF: 0 Discharge Orders: Discharge Order (Routine); Ordered 05/31/21 Ordered By: Neeraj Vyas Admission Data Admit Date/Time: 05/30/21 22:48 Attending Provider: Neeraj Vyas Admit Provider: Lacie Sharif Primary Care Provider: Chelsea Morton Other Providers: Lacie Sharif Coding Level of Care Code D/C DAY MANAGEMENT >30 MINS Diagnoses COVID-19 U07.1 Small cell lung cancer in adult C34.90 Dementia F03.90 ASCVD (arteriosclerotic cardiovascular disease) I25.10 COPD (chronic obstructive pulmonary disease) J44.9 Dyslipidemia E78.5 Hypertension I10 Hypertension type: unspecified
[2021-05-31 15:20] VITALS: BP 112/71; PULSE 79; O2SAT 96
== END 2021-05-31 15:40 | disposition home health service (06) ==
LOC: ED 01:59 → 2N 01:59 → SUATTDRO 05:14 → 2N 07:37 → SUATTDRO 05-30 22:48